=== PATIENT | female | born 1950 | race African-American/Black ===

== ENCOUNTER 2016-12-31 11:52 | Inpatient (IN) | payer MEDICAID ==
[~2016-12-31] VITALS: Ht 167.6 cm; Wt 113.4 kg
[~2016-12-31 11:52] MED LIST: AMLO10TA4 PO; ATOR10TA PO; FLUT1DIS IH; FURO-152 PO; Guaifenesin PO; MECL25TA3 PO; METH10TA2 PO; METH500T PO; MONT10TA21 PO; THE3 PO
[2016-12-31] MEDS ORDERED: ONDANSETRON HCL 4MG/2ML VIAL IV STA (12:12)
[2016-12-31] MEDS ORDERED: IPRATROPIUM BROMIDE (0.02%) 0.5MG/2.5ML NEB HHN STA (12:12)
[2016-12-31] MEDS ORDERED: METHYLPREDNISOLONE SOD SUCC 125 MG/2 ML VIAL IV STA (12:12)
[2016-12-31] MEDS ORDERED: MORPHINE SULFATE 4 MG/ML CPJ (NOT FOR IM USE) IV STA (12:12)
[2016-12-31] MEDS ORDERED: ALBUTEROL (0.083%) 2.5MG/3ML NEB HHN STA (12:12)
[2016-12-31 13:16] LABS: BASOPHILS % 0.5 % (0.0-2.0); EOSINOPHILS % 3.4 % (0.0-5.0); HEMATOCRIT. 29.5 % (36.0-48.0); HEMOGLOBIN. 8.9 g/dL (12.0-16.0); LYMPHOCYTES % 17.6 % (20.0-50.0); MEAN CORPUSCULAR HEMOGLOBIN 24.5 pg (28.0-32.0); MEAN CORPUSCULAR VOLUME 81.5 fL (81.0-99.0); MEAN PLATELET VOLUME 8.2 fl (7.4-10.4); MONOCYTES % 6.1 % (2.0-8.0); NEUTROPHILS % 72.4 % (40.0-76.0); PLATELET 396 x1000/uL (130-400); RED BLOOD CELL COUNT 3.63 mill/uL (4.2-5.4)
[2016-12-31 13:39] LABS: CARBON DIOXIDE 35 mEq/L (21-32); CHLORIDE 101 mEq/L (98-107); TROPONIN I < 0.02 ng/mL (0.00-0.04)
[2016-12-31 13:44] LABS: PROTHROMBIN TIME 10.4 sec (9.4-11.6)
[2016-12-31 17:54] LABS: CLARITY URINE CLEAR (CLEAR); COLOR URINE YELLOW (YELLOW); GLUCOSE URINE NEGATIVE (NEGATIVE); KETONES URINE NEGATIVE (NEGATIVE); LEUKOCYTE ESTERASE URINE 2+ (NEGATIVE); NITRITE URINE NEGATIVE (NEGATIVE); OCCULT BLOOD URINE NEGATIVE (NEGATIVE); PROTEIN URINE NEGATIVE (NEGATIVE); SPECIFIC GRAVITY URINE 1.018 (1.005-1.030); UROBILINOGEN URINE 0.2 E.U./dL (0.2-1.0)
[2016-12-31 18:08] LABS: *AMPHETAMINES SCREEN URINE NEGATIVE (NEGATIVE); *BARBITURATES SCREEN URINE NEGATIVE (NEGATIVE); *BENZODIAZEPINES SCREEN URINE PRESUMTIVE POSITIVE (NEGATIVE); *COCAINE SCREEN URINE NEGATIVE (NEGATIVE); CANNABINOID URINE SCREEN NEGATIVE (NEGATIVE); OPIATES URINE SCREEN PRESUMTIVE POSITIVE (NEGATIVE); PHENCYCLIDINE URINE SCREEN NEGATIVE (NEGATIVE)
[2016-12-31 18:15] LABS: METHADONE URINE SCREEN PRESUMTIVE POSITIVE (NEGATIVE)
[2016-12-31] MEDS ORDERED: MAGNESIUM/ALUMINUM HYDROXIDE/SIMETHICONE 30ML UDC PO PRN (19:45)
[2016-12-31] MEDS ORDERED: ACETAMINOPHEN 325MG TABLET PO PRN (19:45)
[2016-12-31] MEDS ORDERED: ACETAMINOPHEN 650MG/20.3ML UDC GT PRN (19:45)
[2016-12-31] MEDS ORDERED: ACETAMINOPHEN 650MG SUPP PR PRN (19:45)
[2016-12-31] MEDS ORDERED: IPRATROPIUM/ALBUTEROL 0.5-3(2.5)MG/3ML NEB INH PRN (19:45)
[2016-12-31] MEDS ORDERED: DIPHENHYDRAMINE 50MG/ML VIAL IV PRN (19:45)
[2016-12-31] MEDS ORDERED: CLONIDINE 0.1MG TABLET PO PRN (19:45)
[2016-12-31 21:00] VITALS: BP 146/51
[2016-12-31] MEDS ORDERED: NA PHOS,M-B/NA PHOS,DI-BA ENEMA 118ML PR PRN (21:00)
[2016-12-31] MEDS ORDERED: METHADONE HCL 10MG TABLET PO SCH (21:30)
[2016-12-31] MEDS: ATORVASTATIN CALCIUM 10MG TABLET PO SCH (21:50)
[2016-12-31] MEDS: MONTELUKAST SODIUM 10MG TABLET PO SCH (21:50)
[2016-12-31] MEDS: AMLODIPINE 5MG TABLET PO SCH (21:52)
[2016-12-31] MEDS: CLONIDINE 0.1MG TABLET PO SCH (21:54)
[2016-12-31] MEDS: SODIUM CHLORIDE 0.9% INJ 3ML FLUSH IVF SCH (21:57)
[2016-12-31] MEDS ORDERED: METHYLPREDNISOLONE SOD SUCC 125 MG/2 ML VIAL IV SCH (22:00)
[2016-12-31 23:04] LABS: CREATINE KINASE 90 IU/L (26-192)
[2016-12-31 23:40] VITALS: BP 146/51
[2017-01-01] VITALS: BP 153/77
[2017-01-01] MEDS: METHYLPREDNISOLONE SOD SUCC 125 MG/2 ML VIAL IV SCH ×4 (00:07→17:45)
[2017-01-01] MEDS ORDERED: IBUP-2030 PO (01:13)
[2017-01-01 04:00] VITALS: BP 148/72
[2017-01-01] MEDS: SODIUM CHLORIDE 0.9% INJ 3ML FLUSH IVF SCH ×3 (06:21→21:40)
[2017-01-01 07:34] LABS: HEMATOCRIT. 28.9 % (36.0-48.0); HEMOGLOBIN. 8.9 g/dL (12.0-16.0); MEAN CORPUSCULAR HEMOGLOBIN 24.8 pg (28.0-32.0); MEAN CORPUSCULAR VOLUME 80.2 fL (81.0-99.0); MEAN PLATELET VOLUME 8.3 fl (7.4-10.4); PLATELET 381 x1000/uL (130-400); RED BLOOD CELL COUNT 3.61 mill/uL (4.2-5.4); RED CELL DISTRIBUTION WIDTH 13.9 % (11.6-14.6)
[2017-01-01 08:00] VITALS: BP 150/69
[2017-01-01] MEDS: CLONIDINE 0.1MG TABLET PO SCH ×3 (08:35→21:39)
[2017-01-01] MEDS: AMLODIPINE 5MG TABLET PO SCH ×2 (08:35→21:40)
[2017-01-01 08:50] LABS: CARBON DIOXIDE 32 mEq/L (21-32); CHLORIDE 101 mEq/L (98-107); CREATINE KINASE 78 IU/L (26-192); HDL CHOLESTEROL 66 mg/dL (40-59); LDL CHOLESTEROL 91 mg/dL (5-100); TROPONIN I < 0.02 ng/mL (0.00-0.04)
[2017-01-01] MEDS: METHADONE HCL 10MG TABLET PO SCH (09:23)
[2017-01-01 11:40] LABS: PLATELET ESTIMATE NORMAL
[2017-01-01 12:00] VITALS: BP 137/69
[2017-01-01] MEDS: IPRATROPIUM/ALBUTEROL 0.5-3(2.5)MG/3ML NEB HHN SCH ×3 (12:19→20:36)
[2017-01-01 14:51] LABS: CLARITY URINE CLEAR (CLEAR); COLOR URINE YELLOW (YELLOW); GLUCOSE URINE 2+ (NEGATIVE); KETONES URINE NEGATIVE (NEGATIVE); LEUKOCYTE ESTERASE URINE 1+ (NEGATIVE); NITRITE URINE NEGATIVE (NEGATIVE); OCCULT BLOOD URINE NEGATIVE (NEGATIVE); PH URINE 6.5 (4.5-8.0); PROTEIN URINE NEGATIVE (NEGATIVE)
[2017-01-01 15:06] LABS: *AMPHETAMINES SCREEN URINE NEGATIVE (NEGATIVE); *BARBITURATES SCREEN URINE NEGATIVE (NEGATIVE); *BENZODIAZEPINES SCREEN URINE PRESUMTIVE POSITIVE (NEGATIVE); *COCAINE SCREEN URINE NEGATIVE (NEGATIVE); CANNABINOID URINE SCREEN NEGATIVE (NEGATIVE); OPIATES URINE SCREEN PRESUMTIVE POSITIVE (NEGATIVE); PHENCYCLIDINE URINE SCREEN NEGATIVE (NEGATIVE)
[2017-01-01 15:10] LABS: METHADONE URINE SCREEN PRESUMTIVE POSITIVE (NEGATIVE)
[2017-01-01 16:00] VITALS: BP 136/113
[2017-01-01] MEDS: FUROSEMIDE 40MG/4ML VIAL IVP SCH (16:56)
[2017-01-01] MEDS: MONTELUKAST SODIUM 10MG TABLET PO SCH (16:57)
[2017-01-01 20:00] VITALS: BP 144/63
[2017-01-01] MEDS: ATORVASTATIN CALCIUM 10MG TABLET PO SCH (21:38)
[2017-01-02] VITALS (7 sets, daily range): BP systolic 143–154; BP diastolic 66–78
[2017-01-02] MEDS: METHYLPREDNISOLONE SOD SUCC 125 MG/2 ML VIAL IV SCH ×3 (03:41→12:40)
[2017-01-02] MEDS: IPRATROPIUM/ALBUTEROL 0.5-3(2.5)MG/3ML NEB HHN SCH ×4 (05:17→16:18)
[2017-01-02] MEDS: SODIUM CHLORIDE 0.9% INJ 3ML FLUSH IVF SCH ×2 (06:58→14:28)
[2017-01-02 07:22] LABS: HEMATOCRIT. 29.2 % (36.0-48.0); HEMOGLOBIN. 9.2 g/dL (12.0-16.0); MEAN CORPUSCULAR HEMOGLOBIN 24.7 pg (28.0-32.0); MEAN CORPUSCULAR VOLUME 78.6 fL (81.0-99.0); MEAN PLATELET VOLUME 8.3 fl (7.4-10.4); PLATELET 401 x1000/uL (130-400); RED BLOOD CELL COUNT 3.71 mill/uL (4.2-5.4)
[2017-01-02 07:55] LABS: CARBON DIOXIDE 34 mEq/L (21-32); CHLORIDE 98 mEq/L (98-107)
[2017-01-02] MEDS: FUROSEMIDE 40MG/4ML VIAL IVP SCH (08:53)
[2017-01-02] MEDS: METHADONE HCL 10MG TABLET PO SCH (08:58)
[2017-01-02] MEDS: AMLODIPINE 5MG TABLET PO SCH (08:59)
[2017-01-02 10:39] LABS: BG CARBOXYHEMOGLOBIN 0.3 % (0.5-1.5); BG DEOXYHEMOGLOBIN 2.5 % (0.0-5.0); BG FRACTION INSPIRED OXYGEN 28; BG METHEMOGLOBIN 0.3 % (0.0-1.5); BG OXYGEN SATURATION 97.5 % (92.0-98.5); BG OXYHEMOGLOBIN 96.9 % (94.0-97.0); BG PCO2 48.1 mmHg (35.0-45.0); BG PH 7.454 (7.350-7.450); BG PO2 94.1 mmHg (75.0-100.0); BG SAMPLE SITE RIGHT BRACHIAL; BG TOTAL HEMOGLOBIN 10.9 g/dL (12.0-18.0); BG VENT MODE NASAL CANNULA
[2017-01-02] MEDS: HYDROCODONE/ACETAMINOPHEN 5/325MG TABLET PO PRN ×2 (11:11→17:26)
[2017-01-02] MEDS ORDERED: CLONIDINE 0.1MG TABLET PO PRN (11:15)
[2017-01-02] MEDS ORDERED: CLONIDINE 0.2MG TABLET PO PRN (11:15)
[2017-01-02 17:11] LABS: PLATELET ESTIMATE INCREASED
[2017-01-02] MEDS: MONTELUKAST SODIUM 10MG TABLET PO SCH (17:23)
[2017-01-02] MEDS: CLONIDINE 0.1MG TABLET PO SCH (17:25)
[2017-01-02] MEDS ORDERED: METHYLPREDNISOLONE SOD SUCC 40 MG/ML VIAL IV SCH (21:00)
== END 2017-01-02 20:54 | disposition short-term general hospital (02) | DRG 133 ==
LOC: ER 12:13 → 6WST 14:30 → EDBEDREQ 14:33 → ENRESERV 17:44
PROVIDERS: ADMIT Family Medicine; ATTEND Family Medicine
DX: J96.00 Acute respiratory failure, unspecified whether with hypoxia or hypercapnia (principal); I50.31 Acute diastolic (congestive) heart failure; J44.1 Chronic obstructive pulmonary disease with (acute) exacerbation; Z68.41 Body mass index [BMI] 40.0-44.9, adult; I11.0 Hypertensive heart disease with heart failure; D63.8 Anemia in other chronic diseases classified elsewhere; F11.90 Opioid use, unspecified, uncomplicated; E78.5 Hyperlipidemia, unspecified; F17.210 Nicotine dependence, cigarettes, uncomplicated; I49.3 Ventricular premature depolarization; J32.3 Chronic sphenoidal sinusitis; E87.5 Hyperkalemia; E66.01 Morbid (severe) obesity due to excess calories; Z79.899 Other long term (current) drug therapy
CPT/HCPCS: 36415; 36600; 70450; 71010; 80048; 80053; 80061; 80305; 81001; 82375; 82550; 82805; 83605; 83880; 84484; 85025; 85610; 87040; 93005; 93970; 94640; 94664; 96374; 96375; 97162; 99285; J1200; J1940; J2270; J2405; J2930; J7611; J7620

== ENCOUNTER 2017-01-25 12:58 | Inpatient (IN) | payer MEDICAID ==
[~2017-01-25] VITALS: Ht 154.9 cm; Wt 113.6 kg
[~2017-01-25 12:58] MED LIST changes: -Guaifenesin PO; +IBUP-2030 PO
[2017-01-25 14:32] LABS: CLARITY URINE CLEAR (CLEAR); COLOR URINE YELLOW (YELLOW); GLUCOSE URINE NEGATIVE (NEGATIVE); KETONES URINE NEGATIVE (NEGATIVE); LEUKOCYTE ESTERASE URINE NEGATIVE (NEGATIVE); NITRITE URINE NEGATIVE (NEGATIVE); OCCULT BLOOD URINE NEGATIVE (NEGATIVE); PROTEIN URINE NEGATIVE (NEGATIVE); SPECIFIC GRAVITY URINE 1.023 (1.005-1.030); UROBILINOGEN URINE 0.2 E.U./dL (0.2-1.0)
[2017-01-25 14:54] LABS: PROTHROMBIN TIME 10.2 sec (9.4-11.6)
[2017-01-25 14:56] LABS: BASOPHILS % 1.1 % (0.0-2.0); EOSINOPHILS % 4.6 % (0.0-5.0); HEMATOCRIT. 31.7 % (36.0-48.0); HEMOGLOBIN. 9.7 g/dL (12.0-16.0); LYMPHOCYTES % 15.4 % (20.0-50.0); MEAN CORPUSCULAR HEMOGLOBIN 25.5 pg (28.0-32.0); MEAN CORPUSCULAR VOLUME 82.9 fL (81.0-99.0); MEAN PLATELET VOLUME 7.6 fl (7.4-10.4); MONOCYTES % 10.4 % (2.0-8.0); NEUTROPHILS % 68.5 % (40.0-76.0); PLATELET 401 x1000/uL (130-400); RED BLOOD CELL COUNT 3.83 mill/uL (4.2-5.4); RED CELL DISTRIBUTION WIDTH 15.3 % (11.6-14.6)
[2017-01-25 15:02] LABS: CARBON DIOXIDE 34 mEq/L (21-32); CHLORIDE 103 mEq/L (98-107); TROPONIN I < 0.02 ng/mL (0.00-0.04)
[2017-01-25 15:37] LABS: BG BASE EXCESS 3.7 mmol/L (-2.0-2.0); BG CARBOXYHEMOGLOBIN 0.6 % (0.5-1.5); BG DEOXYHEMOGLOBIN 2.8 % (0.0-5.0); BG FRACTION INSPIRED OXYGEN 38; BG HCO3 ACT 34.5 mmol/L (22.0-26.0); BG METHEMOGLOBIN 0.5 % (0.0-1.5); BG OXYGEN SATURATION 97.2 % (92.0-98.5); BG OXYHEMOGLOBIN 96.1 % (94.0-97.0); BG PCO2 96.6 mmHg (35.0-45.0); BG PH 7.171 (7.350-7.450); BG SAMPLE SITE RIGHT RADIAL; BG TOTAL HEMOGLOBIN 10.9 g/dL (12.0-18.0); BG VENT MODE NASAL CANNULA
[2017-01-25] MEDS ORDERED: NALOXONE HCL 1 MG/ML 2ML VIAL IV ONE (16:15)
[2017-01-25] MEDS ORDERED: IPRATROPIUM BROMIDE (0.02%) 0.5MG/2.5ML NEB HHN STA (16:37)
[2017-01-25] MEDS ORDERED: METHYLPREDNISOLONE SOD SUCC 125 MG/2 ML VIAL IV ONE (16:45)
[2017-01-25] MEDS ORDERED: ALBUTEROL (0.083%) 2.5MG/3ML NEB ONE (16:56)
[2017-01-25] MEDS ORDERED: IPRATROPIUM BROMIDE (0.02%) 0.5MG/2.5ML NEB ONE (16:56)
[2017-01-25] MEDS ORDERED: ALBUTEROL (0.083%) 2.5MG/3ML NEB HHN SCH (17:00)
[2017-01-25] MEDS: SODIUM CHLORIDE 0.9% 1,000 ML IV SCH (18:55)
[2017-01-25] MEDS ORDERED: CLONIDINE 0.1MG TABLET PO PRN (19:00)
[2017-01-25] MEDS ORDERED: ONDANSETRON HCL 4MG/2ML VIAL IV PRN (19:00)
[2017-01-25] MEDS ORDERED: ACETAMINOPHEN 325MG TABLET PO PRN (19:00)
[2017-01-25] MEDS ORDERED: MAGNESIUM/ALUMINUM HYDROXIDE/SIMETHICONE 30ML UDC PO PRN (19:00)
[2017-01-25] MEDS ORDERED: IPRATROPIUM/ALBUTEROL 0.5-3(2.5)MG/3ML NEB INH PRN (19:00)
[2017-01-25 20:00] VITALS: BP 150/80
[2017-01-25 20:05] LABS: *AMPHETAMINES SCREEN URINE NEGATIVE (NEGATIVE); *BARBITURATES SCREEN URINE NEGATIVE (NEGATIVE); *BENZODIAZEPINES SCREEN URINE PRESUMTIVE POSITIVE (NEGATIVE); *COCAINE SCREEN URINE NEGATIVE (NEGATIVE); CANNABINOID URINE SCREEN NEGATIVE (NEGATIVE); METHADONE URINE SCREEN PRESUMTIVE POSITIVE (NEGATIVE); OPIATES URINE SCREEN PRESUMTIVE POSITIVE (NEGATIVE); PHENCYCLIDINE URINE SCREEN NEGATIVE (NEGATIVE)
[2017-01-25 20:25] LABS: CARBON DIOXIDE 32 mEq/L (21-32); CHLORIDE 103 mEq/L (98-107)
[2017-01-25 20:30] LABS: CREATINE KINASE 266 IU/L (26-192); CREATINE KINASE MB FRACTION 2.8 ng/mL (0.5-3.6); TROPONIN I < 0.02 ng/mL (0.00-0.04)
[2017-01-25] MEDS ORDERED: AZITHROMYCIN 500 MG in DEXT 5% WATER 250 ML IV SCH (21:00)
[2017-01-25] MEDS: METHYLPREDNISOLONE SOD SUCC 40 MG/ML VIAL IV SCH (21:19)
[2017-01-25 22:00] VITALS: BP 102/70
[2017-01-25] MEDS ORDERED: CEFTRIAXONE 1 G PREMIX 50 ML IV SCH (22:00)
[2017-01-25 23:21] VITALS: BP 150/80
[2017-01-26] VITALS (8 sets, daily range): BP systolic 117–145; BP diastolic 66–91
[2017-01-26] MEDS: METHYLPREDNISOLONE SOD SUCC 40 MG/ML VIAL IV SCH ×3 (00:17→08:51)
[2017-01-26] MEDS: BUDESONIDE 0.5MG/2ML NEB HHN SCH ×2 (00:22→08:01)
[2017-01-26 06:44] LABS: BASOPHILS % 0.2 % (0.0-2.0); HEMATOCRIT. 31.6 % (36.0-48.0); HEMOGLOBIN. 9.8 g/dL (12.0-16.0); LYMPHOCYTES % 9.5 % (20.0-50.0); MEAN CORPUSCULAR HEMOGLOBIN 25.5 pg (28.0-32.0); MEAN CORPUSCULAR VOLUME 82.2 fL (81.0-99.0); MEAN PLATELET VOLUME 7.9 fl (7.4-10.4); MONOCYTES % 0.8 % (2.0-8.0); NEUTROPHILS % 89.5 % (40.0-76.0); PLATELET 415 x1000/uL (130-400); RED BLOOD CELL COUNT 3.84 mill/uL (4.2-5.4); RED CELL DISTRIBUTION WIDTH 14.8 % (11.6-14.6)
[2017-01-26 07:15] LABS: BG BASE EXCESS 1.1 mmol/L (-2.0-2.0); BG CARBOXYHEMOGLOBIN 0.8 % (0.5-1.5); BG DEOXYHEMOGLOBIN 9.9 % (0.0-5.0); BG HCO3 ACT 27.7 mmol/L (22.0-26.0); BG METHEMOGLOBIN 0.3 % (0.0-1.5); BG PCO2 53.3 mmHg (35.0-45.0); BG PH 7.333 (7.350-7.450); BG PO2 56.1 mmHg (75.0-100.0); BG SAMPLE SITE RIGHT RADIAL; BG TOTAL HEMOGLOBIN 10.8 g/dL (12.0-18.0); BG VENT MODE NASAL CANNULA
[2017-01-26] MEDS: THEOPHYLLINE ANHYDROUS 80 MG/15 ML 120ML PO SCH ×3 (08:00→12:00)
[2017-01-26] MEDS: ALBUTEROL (0.083%) 2.5MG/3ML NEB HHN SCH ×2 (08:01→14:20)
[2017-01-26 08:04] LABS: CREATINE KINASE 172 IU/L (26-192); HDL CHOLESTEROL 57 mg/dL (40-59); LDL CHOLESTEROL 101 mg/dL (5-100)
[2017-01-26 08:05] LABS: CREATINE KINASE MB FRACTION 2.1 ng/mL (0.5-3.6); TROPONIN I < 0.02 ng/mL (0.00-0.04)
[2017-01-26] MEDS: METHOCARBAMOL 500MG TABLET PO SCH ×2 (08:56→12:48)
[2017-01-26] MEDS ORDERED: METHOCARBAMOL 500MG TABLET PO SCH (09:00)
[2017-01-26] MEDS ORDERED: THEOPHYLLINE ANHYDROUS 100MG TABLET SR 12HR PO SCH (09:00)
[2017-01-26] MEDS ORDERED: THEOPHYLLINE ANHYDROUS 300 MG PO SCH (09:00)
[2017-01-26] MEDS ORDERED: MECLIZINE 25MG TABLET PO SCH (09:00)
[2017-01-26] MEDS ORDERED: FUROSEMIDE 20MG TABLET PO SCH (09:00)
[2017-01-26] MEDS ORDERED: AMLODIPINE 10MG TABLET PO SCH (09:00)
[2017-01-26] MEDS ORDERED: MEDICATION NOT ON FORMULARY EA (Fluticasone/Salmeterol (Advair Diskus) 1 PUFF) IH SCH (09:00)
[2017-01-26] MEDS ORDERED: ENOXAPARIN 40MG/0.4ML SYR SUBCUT SCH (09:00)
[2017-01-26] MEDS: SODIUM CHLORIDE 0.9% 1,000 ML IV SCH (11:35)
[2017-01-26] MEDS ORDERED: AZITHROMYCIN 500 MG in DEXT 5% WATER 250 ML IV SCH (20:00)
[2017-01-26] MEDS ORDERED: CEFTRIAXONE 1 G PREMIX 50 ML IV SCH (21:00)
[2017-01-26] MEDS ORDERED: MONTELUKAST SODIUM 10MG TABLET PO SCH (21:00)
[2017-01-26] MEDS ORDERED: ATORVASTATIN CALCIUM 10MG TABLET PO SCH (21:00)
[2017-01-27] MEDS ORDERED: METHYLPREDNISOLONE SOD SUCC 40 MG/ML VIAL IV SCH (09:00)
== END 2017-01-26 17:33 | disposition home or self-care (01) | DRG 140 ==
LOC: ER 12:58 → 5EST 16:30 → ENRESERV 16:42 → 5EST 22:00
PROVIDERS: ADMIT Internal Medicine; ATTEND Internal Medicine
PROC: 5A09357 Assistance with Respiratory Ventilation, Less than 24 Consecutive Hours, Continuous Positive Airway Pressure (ICD-10-PCS; principal; 2017-01-25)
DX: J44.0 Chronic obstructive pulmonary disease with (acute) lower respiratory infection (principal); J96.01 Acute respiratory failure with hypoxia; G92 Toxic encephalopathy; J18.9 Pneumonia, unspecified organism; J96.02 Acute respiratory failure with hypercapnia; I11.0 Hypertensive heart disease with heart failure; I50.32 Chronic diastolic (congestive) heart failure; Z99.81 Dependence on supplemental oxygen; E66.01 Morbid (severe) obesity due to excess calories; D64.9 Anemia, unspecified; E78.5 Hyperlipidemia, unspecified; F11.90 Opioid use, unspecified, uncomplicated; R73.9 Hyperglycemia, unspecified; J44.1 Chronic obstructive pulmonary disease with (acute) exacerbation; Z79.899 Other long term (current) drug therapy
CPT/HCPCS: 36415; 36600; 70551; 71010; 80048; 80061; 80305; 81003; 82375; 82550; 82553; 82805; 82962; 83690; 83735; 83880; 84484; 85025; 85610; 87040; 87086; 93005; 93970; 94640; 94660; 96374; 96375; 99291; J0456; J0696; J1650; J2310; J2920; J2930; J7030; J7060; J7611; J7620; J7626; J8597

== ENCOUNTER 2017-11-08 08:14 | Emergency (ER) | payer MEDICARE, MEDICAID ==
[~2017-11-08] VITALS: Ht 157.5 cm; Wt 95.0 kg
[2017-11-08] MEDS ORDERED: IPRATROPIUM BROMIDE (0.02%) 0.5MG/2.5ML NEB HHN STA (08:40)
[2017-11-08] MEDS ORDERED: ALBUTEROL (0.083%) 2.5MG/3ML NEB HHN STA (08:40)
[2017-11-08] MEDS ORDERED: METHYLPREDNISOLONE SOD SUCC 125 MG/2 ML VIAL IV STA (08:40)
[2017-11-08] MEDS ORDERED: IPRATROPIUM/ALBUTEROL 0.5-3(2.5)MG/3ML NEB ONE (08:59)
[2017-11-08] MEDS ORDERED: ALBUTEROL (0.5%) 2.5MG/0.5ML NEB HHN ONE (08:59)
[2017-11-08 09:10] LABS: BASOPHILS % 1.1 % (0.0-2.0); EOSINOPHILS % 3.7 % (0.0-5.0); HEMATOCRIT. 31.2 % (36.0-48.0); HEMOGLOBIN. 10.1 g/dL (12.0-16.0); LYMPHOCYTES % 29.4 % (20.0-50.0); MEAN CORPUSCULAR HEMOGLOBIN 26.2 pg (28.0-32.0); MEAN PLATELET VOLUME 7.9 fl (7.4-10.4); MONOCYTES % 5.7 % (2.0-8.0); NEUTROPHILS % 60.1 % (40.0-76.0); PLATELET 363 x1000/uL (130-400); RED BLOOD CELL COUNT 3.85 mill/uL (4.2-5.4); RED CELL DISTRIBUTION WIDTH 13.4 % (11.6-14.6)
[2017-11-08 09:17] LABS: CHLORIDE 102 mEq/L (98-107)
[2017-11-08 09:19] LABS: PROTHROMBIN TIME 10.2 sec (9.1-11.1)
[2017-11-08] MEDS ORDERED: ACETAMINOPHEN WITH CODEINE 300/30MG TABLET PO ONE (09:45)
[2017-11-08 10:37] VITALS: BP 147/75
[2017-11-08] MEDS ORDERED: LIDOCAINE 5% PATCH TOP SCH (10:45)
== END 2017-11-08 11:11 | disposition home or self-care (01) ==
LOC: ER 08:14
DX: J44.1 Chronic obstructive pulmonary disease with (acute) exacerbation (principal); I50.9 Heart failure, unspecified; Z99.81 Dependence on supplemental oxygen
CPT/HCPCS: 36415; 71045; 80053; 83880; 84484; 85025; 85610; 93005; 94640; 96374; 99285; J2930; J7611; J7620

== ENCOUNTER 2018-05-16 23:10 | Inpatient (IN) | payer MEDICARE, MEDICAID ==
[~2018-05-16] VITALS: Ht 160 cm; Wt 103.2 kg
[2018-05-17] MEDS ORDERED: MORPHINE SULFATE 4 MG/ML CPJ (NOT FOR IM USE) IV STA (00:01)
[2018-05-17] MEDS ORDERED: ONDANSETRON HCL 4MG/2ML INJ IV STA (00:01)
[2018-05-17] MEDS ORDERED: METHYLPREDNISOLONE SOD SUCC 125 MG/2 ML VIAL IV STA (00:01)
[2018-05-17] MEDS ORDERED: IPRATROPIUM/ALBUTEROL 0.5-3(2.5)MG/3ML NEB HHN ONE (00:15)
[2018-05-17] MEDS ORDERED: ASPIRIN 81MG TABLET PO ONE (00:15)
[2018-05-17] MEDS ORDERED: LEVOFLOXACIN 750MG PREMIX 150 ML IV ONE (00:15)
[2018-05-17 00:36] LABS: BASOPHILS % 0.4 % (0.0-2.0); EOSINOPHILS % 0.3 % (0.0-5.0); HEMATOCRIT. 33.3 % (36.0-48.0); HEMOGLOBIN. 10.3 g/dL (12.0-16.0); LYMPHOCYTES % 11.9 % (20.0-50.0); MEAN CORPUSCULAR HEMOGLOBIN 25.6 pg (28.0-32.0); MEAN PLATELET VOLUME 8.3 fl (7.4-10.4); MONOCYTES % 4.8 % (2.0-8.0); NEUTROPHILS % 82.6 % (40.0-76.0); PLATELET 321 x1000/uL (130-400); RED BLOOD CELL COUNT 4.02 mill/uL (4.2-5.4); RED CELL DISTRIBUTION WIDTH 13.4 % (11.6-14.6)
[2018-05-17 00:43] LABS: CHLORIDE 101 mEq/L (98-107)
[2018-05-17 00:46] LABS: PARTIAL THROMBOPLASTIN TIME 27.3 sec (23.4-31.0); PROTHROMBIN TIME 10.2 sec (9.1-11.1)
[2018-05-17 00:47] LABS: ETHANOL BLOOD < 10 mg/dL
[2018-05-17 00:49] LABS: BG BASE EXCESS 5.1 mmol/L (-2.0-2.0); BG CARBOXYHEMOGLOBIN 0.3 % (0.5-1.5); BG DEOXYHEMOGLOBIN 2.5 % (0.0-5.0); BG FRACTION INSPIRED OXYGEN 28; BG HCO3 ACT 31.6 mmol/L (22.0-26.0); BG METHEMOGLOBIN 0.3 % (0.0-1.5); BG OXYGEN SATURATION 97.5 % (92.0-98.5); BG OXYHEMOGLOBIN 96.9 % (94.0-97.0); BG PCO2 56.5 mmHg (35.0-45.0); BG PH 7.366 (7.350-7.450); BG PO2 92.5 mmHg (75.0-100.0); BG SAMPLE SITE LEFT RADIAL; BG TOTAL HEMOGLOBIN 10.9 g/dL (12.0-18.0); BG VENT MODE NASAL CANNULA
[2018-05-17] MEDS ORDERED: MAGNESIUM/ALUMINUM HYDROXIDE/SIMETHICONE 30ML UDC PO PRN (10:15)
[2018-05-17] MEDS ORDERED: DOCUSATE SODIUM 100MG CAPSULE PO PRN (10:15)
[2018-05-17] MEDS ORDERED: ONDANSETRON HCL 4MG/2ML INJ IV PRN (10:15)
[2018-05-17] MEDS ORDERED: GUAIFENESIN 200MG/10ML SUGAR FREE UDC PO PRN (10:15)
[2018-05-17] MEDS ORDERED: DIPHENHYDRAMINE 50MG/ML VIAL IV PRN (10:15)
[2018-05-17] MEDS ORDERED: ACETAMINOPHEN 325MG TABLET PO PRN (10:15)
[2018-05-17] MEDS ORDERED: CLONIDINE 0.1MG TABLET PO PRN (10:15)
[2018-05-17] MEDS ORDERED: HYDROCODONE/ACETAMINOPHEN 5/325MG TABLET PO PRN (10:15)
[2018-05-17] MEDS ORDERED: IPRATROPIUM/ALBUTEROL 0.5-3(2.5)MG/3ML NEB HHN PRN (11:30)
[2018-05-17 12:12] LABS: T4 FREE 1.16 ng/dL (0.76-1.46)
[2018-05-17] MEDS: IPRATROPIUM/ALBUTEROL 0.5-3(2.5)MG/3ML NEB INH PRN (14:50)
[2018-05-17] MEDS: HYDROCODONE/APAP 7.5/325MG 1 TAB TABLET PO PRN (19:43)
[2018-05-17 21:33] VITALS: BP 162/72
[2018-05-17] MEDS: FUROSEMIDE 20MG TABLET PO SCH (22:44)
[2018-05-17] MEDS: AMLODIPINE 5MG TABLET PO SCH (22:45)
[2018-05-17] MEDS: TRAMADOL 50MG TABLET PO PRN (23:54)
[2018-05-18] VITALS: BP 139/75
[2018-05-18] MEDS: IPRATROPIUM/ALBUTEROL 0.5-3(2.5)MG/3ML NEB INH PRN ×4 (00:16→20:57)
[2018-05-18] MEDS: BUDESONIDE 0.5MG/2ML NEB HHN SCH ×3 (00:16→20:58)
[2018-05-18 04:00] VITALS: BP 158/63
[2018-05-18] MEDS: FUROSEMIDE 20MG TABLET PO SCH ×2 (06:18→17:43)
[2018-05-18 07:10] LABS: BASOPHILS % 0.5 % (0.0-2.0); EOSINOPHILS % 0.4 % (0.0-5.0); HEMATOCRIT. 31.9 % (36.0-48.0); HEMOGLOBIN. 10.1 g/dL (12.0-16.0); LYMPHOCYTES % 22.1 % (20.0-50.0); MEAN CORPUSCULAR HEMOGLOBIN 25.8 pg (28.0-32.0); MEAN CORPUSCULAR VOLUME 81.9 fL (81.0-99.0); MEAN PLATELET VOLUME 8.5 fl (7.4-10.4); MONOCYTES % 6.9 % (2.0-8.0); NEUTROPHILS % 70.1 % (40.0-76.0); PLATELET 313 x1000/uL (130-400); RED BLOOD CELL COUNT 3.89 mill/uL (4.2-5.4); RED CELL DISTRIBUTION WIDTH 13.3 % (11.6-14.6)
[2018-05-18 07:24] LABS: CHLORIDE 102 mEq/L (98-107)
[2018-05-18 07:36] LABS: LDL CHOLESTEROL 88 mg/dL (5-100)
[2018-05-18 07:37] LABS: HDL CHOLESTEROL 49 mg/dL (40-59)
[2018-05-18 08:20] VITALS: BP 97/65
[2018-05-18] MEDS: AMLODIPINE 5MG TABLET PO SCH ×2 (08:45→20:49)
[2018-05-18] MEDS: ENOXAPARIN 40MG/0.4ML SYR SUBCUT SCH (09:00)
[2018-05-18] MEDS: TRAMADOL 50MG TABLET PO PRN ×2 (09:33→15:42)
[2018-05-18 12:00] VITALS: BP 125/54
[2018-05-18 13:42] LABS: T4 FREE 1.17 ng/dL (0.76-1.46)
[2018-05-18 13:55] LABS: FOLIC ACID (FOLATE) SERUM 15.8 ng/mL (>5.38)
[2018-05-18 14:14] LABS: CLARITY URINE CLEAR (CLEAR); COLOR URINE YELLOW (YELLOW); KETONES URINE NEGATIVE (NEGATIVE); LEUKOCYTE ESTERASE URINE TRACE (NEGATIVE); NITRITE URINE NEGATIVE (NEGATIVE); OCCULT BLOOD URINE NEGATIVE (NEGATIVE); PH URINE 6.5 (4.5-8.0); PROTEIN URINE NEGATIVE (NEGATIVE); SPECIFIC GRAVITY URINE 1.007 (1.005-1.030); UROBILINOGEN URINE 0.2 E.U./dL (0.2-1.0)
[2018-05-18 14:43] LABS: *AMPHETAMINES SCREEN URINE NEGATIVE (NEGATIVE)
[2018-05-18 14:44] LABS: *BARBITURATES SCREEN URINE NEGATIVE (NEGATIVE); *BENZODIAZEPINES SCREEN URINE PRESUMTIVE POSITIVE (NEGATIVE); *COCAINE SCREEN URINE NEGATIVE (NEGATIVE); CANNABINOID URINE SCREEN NEGATIVE (NEGATIVE); OPIATES URINE SCREEN PRESUMTIVE POSITIVE (NEGATIVE); PHENCYCLIDINE URINE SCREEN NEGATIVE (NEGATIVE)
[2018-05-18 14:53] LABS: METHADONE URINE SCREEN PRESUMTIVE POSITIVE (NEGATIVE)
[2018-05-18 16:00] VITALS: BP 143/71
[2018-05-18 20:00] VITALS: BP 129/75
[2018-05-18] MEDS: HYDROCODONE/APAP 7.5/325MG 1 TAB TABLET PO PRN (20:50)
[2018-05-19] VITALS: BP 156/76
[2018-05-19] MEDS: TRAMADOL 50MG TABLET PO PRN (00:08)
[2018-05-19 04:00] VITALS: BP 148/55
[2018-05-19] MEDS: FUROSEMIDE 20MG TABLET PO SCH ×2 (06:08→16:42)
[2018-05-19] MEDS: HYDROCODONE/APAP 7.5/325MG 1 TAB TABLET PO PRN ×4 (06:08→21:10)
[2018-05-19 07:08] LABS: BASOPHILS % 0.6 % (0.0-2.0); EOSINOPHILS % 1.1 % (0.0-5.0); HEMATOCRIT. 31.7 % (36.0-48.0); HEMOGLOBIN. 9.9 g/dL (12.0-16.0); LYMPHOCYTES % 36.9 % (20.0-50.0); MEAN CORPUSCULAR HEMOGLOBIN 25.4 pg (28.0-32.0); MEAN CORPUSCULAR VOLUME 81.3 fL (81.0-99.0); MEAN PLATELET VOLUME 8.8 fl (7.4-10.4); MONOCYTES % 8.4 % (2.0-8.0); PLATELET 322 x1000/uL (130-400); RED CELL DISTRIBUTION WIDTH 13.1 % (11.6-14.6)
[2018-05-19 07:34] LABS: CHLORIDE 99 mEq/L (98-107)
[2018-05-19 07:52] LABS: CREATINE KINASE 81 IU/L (26-192)
[2018-05-19] MEDS: BUDESONIDE 0.5MG/2ML NEB HHN SCH ×2 (08:07→22:24)
[2018-05-19 08:11] VITALS: BP 152/69
[2018-05-19] MEDS: IPRATROPIUM/ALBUTEROL 0.5-3(2.5)MG/3ML NEB INH PRN ×2 (08:11→22:24)
[2018-05-19] MEDS: AMLODIPINE 5MG TABLET PO SCH ×2 (08:50→21:09)
[2018-05-19] MEDS: ENOXAPARIN 40MG/0.4ML SYR SUBCUT SCH (08:51)
[2018-05-19 12:00] VITALS: BP 145/61
[2018-05-19] MEDS: LOSARTAN POTASSIUM 25 MG TABLET PO SCH (12:51)
[2018-05-19 16:00] VITALS: BP 159/69
[2018-05-19 20:00] VITALS: BP 151/78
[2018-05-19] MEDS: LORAZEPAM 0.5MG TABLET PO PRN (22:29)
[2018-05-20] VITALS: BP 153/66
[2018-05-20 04:00] VITALS: BP 145/71
[2018-05-20] MEDS: FUROSEMIDE 20MG TABLET PO SCH ×2 (06:44→16:49)
[2018-05-20 08:00] VITALS: BP 135/65
[2018-05-20] MEDS: BUDESONIDE 0.5MG/2ML NEB HHN SCH ×2 (08:59→20:12)
[2018-05-20] MEDS: IPRATROPIUM/ALBUTEROL 0.5-3(2.5)MG/3ML NEB INH PRN ×2 (08:59→20:12)
[2018-05-20] MEDS: LOSARTAN POTASSIUM 25 MG TABLET PO SCH (09:08)
[2018-05-20] MEDS: AMLODIPINE 5MG TABLET PO SCH ×2 (09:08→20:53)
[2018-05-20] MEDS: ENOXAPARIN 40MG/0.4ML SYR SUBCUT SCH (09:11)
[2018-05-20] MEDS: TRAMADOL 50MG TABLET PO PRN (09:11)
[2018-05-20 12:00] VITALS: BP 115/58
[2018-05-20] MEDS: HYDROCODONE/APAP 7.5/325MG 1 TAB TABLET PO PRN ×3 (12:26→21:34)
[2018-05-20 16:00] VITALS: BP 127/63
[2018-05-20 20:00] VITALS: BP 112/82
[2018-05-20] MEDS: ENOXAPARIN 30MG/0.3ML SYR SUBCUT SCH (20:54)
[2018-05-20] MEDS: LORAZEPAM 0.5MG TABLET PO PRN (20:54)
[2018-05-21] VITALS: BP 144/69
[2018-05-21 04:00] VITALS: BP 135/78
[2018-05-21] MEDS: HYDROCODONE/APAP 7.5/325MG 1 TAB TABLET PO PRN (05:26)
[2018-05-21 06:56] LABS: BASOPHILS % 0.5 % (0.0-2.0); EOSINOPHILS % 2.6 % (0.0-5.0); HEMATOCRIT. 35.5 % (36.0-48.0); HEMOGLOBIN. 11.2 g/dL (12.0-16.0); LYMPHOCYTES % 31.6 % (20.0-50.0); MEAN CORPUSCULAR HEMOGLOBIN 25.3 pg (28.0-32.0); MEAN CORPUSCULAR VOLUME 80.6 fL (81.0-99.0); MEAN PLATELET VOLUME 8.5 fl (7.4-10.4); MONOCYTES % 8.7 % (2.0-8.0); NEUTROPHILS % 56.6 % (40.0-76.0); PLATELET 352 x1000/uL (130-400); RED CELL DISTRIBUTION WIDTH 13.5 % (11.6-14.6)
[2018-05-21] MEDS: IPRATROPIUM/ALBUTEROL 0.5-3(2.5)MG/3ML NEB INH PRN ×2 (07:51→22:01)
[2018-05-21] MEDS: BUDESONIDE 0.5MG/2ML NEB HHN SCH ×2 (07:51→22:01)
[2018-05-21 07:52] LABS: CHLORIDE 100 mEq/L (98-107)
[2018-05-21 08:00] VITALS: BP 147/82
[2018-05-21] MEDS: FUROSEMIDE 20MG TABLET PO SCH ×2 (08:48→18:06)
[2018-05-21] MEDS: LOSARTAN POTASSIUM 25 MG TABLET PO SCH (08:49)
[2018-05-21] MEDS: AMLODIPINE 5MG TABLET PO SCH ×2 (08:49→22:02)
[2018-05-21] MEDS: MORPHINE SULFATE 4 MG/ML CPJ (NOT FOR IM USE) IV PRN ×4 (08:50→22:55)
[2018-05-21] MEDS: ENOXAPARIN 30MG/0.3ML SYR SUBCUT SCH ×2 (08:51→22:03)
[2018-05-21 12:24] VITALS: BP 151/76
[2018-05-21] MEDS: LIDOCAINE 5% PATCH TOP SCH (15:11)
[2018-05-21 16:00] VITALS: BP 138/90
[2018-05-21] MEDS: DOCUSATE SODIUM 100MG CAPSULE PO SCH (18:06)
[2018-05-21 20:41] VITALS: BP 146/86
[2018-05-22] VITALS: BP 116/80
[2018-05-22] MEDS: MORPHINE SULFATE 4 MG/ML CPJ (NOT FOR IM USE) IV PRN ×2 (03:23→08:21)
[2018-05-22 04:22] VITALS: BP 113/91
[2018-05-22] MEDS: LORAZEPAM 0.5MG TABLET PO PRN (04:32)
[2018-05-22] MEDS: FUROSEMIDE 20MG TABLET PO SCH (07:09)
[2018-05-22 08:19] VITALS: BP 135/78
[2018-05-22] MEDS: LOSARTAN POTASSIUM 25 MG TABLET PO SCH (08:20)
[2018-05-22] MEDS: DOCUSATE SODIUM 100MG CAPSULE PO SCH (08:20)
[2018-05-22] MEDS: AMLODIPINE 5MG TABLET PO SCH (08:20)
[2018-05-22] MEDS: ENOXAPARIN 30MG/0.3ML SYR SUBCUT SCH (08:21)
[2018-05-22] MEDS: BUDESONIDE 0.5MG/2ML NEB HHN SCH (08:34)
[2018-05-22] MEDS: LIDOCAINE 5% PATCH TOP SCH (09:41)
[2018-05-22 12:00] VITALS: BP 141/74
[2018-05-22] MEDS ORDERED: METHADONE HCL 5MG TABLET PO SCH (12:00)
[2018-05-22 15:33] VITALS: BP 141/74
[2018-05-22 16:43] VITALS: BP 144/51
== END 2018-05-22 16:10 | disposition home health service (06) | DRG 189 ==
LOC: ER 23:10 → 5WST 05-17 01:40 → EDBEDREQ 05-17 01:54 → EDBEDREQTM 05-17 01:54 → ENRESERV 05-17 20:00
PROVIDERS: ADMIT Family Medicine Adult Medicine; ATTEND Family Medicine Adult Medicine
DX: J96.00 Acute respiratory failure, unspecified whether with hypoxia or hypercapnia (principal); I50.33 Acute on chronic diastolic (congestive) heart failure; G82.20 Paraplegia, unspecified; F11.20 Opioid dependence, uncomplicated; J44.1 Chronic obstructive pulmonary disease with (acute) exacerbation; Z68.41 Body mass index [BMI] 40.0-44.9, adult; I27.20 Pulmonary hypertension, unspecified; E66.01 Morbid (severe) obesity due to excess calories; D50.9 Iron deficiency anemia, unspecified; E11.9 Type 2 diabetes mellitus without complications; G89.4 Chronic pain syndrome; I11.0 Hypertensive heart disease with heart failure; E78.5 Hyperlipidemia, unspecified; D72.829 Elevated white blood cell count, unspecified; Z96.651 Presence of right artificial knee joint; I34.0 Nonrheumatic mitral (valve) insufficiency; M17.0 Bilateral primary osteoarthritis of knee; M43.16 Spondylolisthesis, lumbar region; M48.061 Spinal stenosis, lumbar region without neurogenic claudication; Z99.81 Dependence on supplemental oxygen; Z87.891 Personal history of nicotine dependence; Z82.49 Family history of ischemic heart disease and other diseases of the circulatory system; Z79.899 Other long term (current) drug therapy
CPT/HCPCS: 36415; 36600; 70551; 71045; 72141; 72146; 72148; 80048; 80061; 80305; 82375; 82550; 82607; 82746; 82805; 82962; 83036; 83605; 83735; 83880; 84439; 84443; 84481; 84484; 93005; 93306; 93970; 94640; 96365; 96375; 96376; 97116; 97162; 97166; 97530; 99285; J1650; J1956; J2270; J2405; J2930; J7620; J7626

== ENCOUNTER 2019-04-30 17:38 | Inpatient (IN) | payer MEDICARE, MEDICAID ==
[~2019-04-30] VITALS: Ht 162.6 cm; Wt 105.7 kg
[~2019-04-30 17:38] MED LIST changes: +LIDOCAINE HCL/PF 1% 2ML VIAL ONE
[2019-04-30] MEDS ORDERED: ALBUTEROL (0.083%) 2.5MG/3ML NEB HHN STA (18:31)
[2019-04-30] MEDS ORDERED: PREDNISONE 20MG TABLET PO STA (18:31)
[2019-04-30] MEDS ORDERED: IPRATROPIUM BROMIDE (0.02%) 0.5MG/2.5ML NEB HHN STA (18:31)
[2019-04-30 18:45] LABS: EOSINOPHILS % 2.7 % (0.0-5.0); HEMATOCRIT. 35.4 % (36.0-48.0); HEMOGLOBIN. 11.1 g/dL (12.0-16.0); LYMPHOCYTES % 22.6 % (20.0-50.0); MEAN CORPUSCULAR HEMOGLOBIN 25.7 pg (28.0-32.0); MEAN PLATELET VOLUME 8.2 fl (7.4-10.4); MONOCYTES % 5.9 % (2.0-8.0); NEUTROPHILS % 67.8 % (40.0-76.0); PLATELET 344 x1000/uL (130-400); RED BLOOD CELL COUNT 4.31 mill/uL (4.2-5.4); RED CELL DISTRIBUTION WIDTH 14.2 % (11.6-14.6)
[2019-04-30] MEDS ORDERED: MAGNESIUM 2 G PREMIX 50 ML IV ONE (18:45)
[2019-04-30 18:52] LABS: CHLORIDE 97 mEq/L (98-107); PROTHROMBIN TIME 10.6 sec (9.6-11.0)
[2019-04-30] MEDS ORDERED: FUROSEMIDE 40MG/4ML VIAL IVP ONE (19:00)
[2019-04-30 19:06] LABS: BG BASE EXCESS 7.8 mmol/L (-2.0-2.0); BG CARBOXYHEMOGLOBIN 0.4 % (0.5-1.5); BG DEOXYHEMOGLOBIN 3.5 % (0.0-5.0); BG FRACTION INSPIRED OXYGEN 28; BG HCO3 ACT 35.4 mmol/L (22.0-26.0); BG METHEMOGLOBIN 0.3 % (0.0-1.5); BG OXYGEN SATURATION 96.5 % (92.0-98.5); BG OXYHEMOGLOBIN 95.8 % (94.0-97.0); BG PCO2 66.3 mmHg (35.0-45.0); BG PH 7.345 (7.350-7.450); BG PO2 85.7 mmHg (75.0-100.0); BG SAMPLE SITE RIGHT RADIAL; BG TOTAL HEMOGLOBIN 11.4 g/dL (12.0-18.0); BG VENT MODE NASAL CANNULA
[2019-04-30] MEDS ORDERED: DOCUSATE SODIUM 100MG CAPSULE PO PRN (20:30)
[2019-04-30] MEDS ORDERED: HYDRALAZINE 20MG/ML VIAL IV PRN (20:30)
[2019-04-30] MEDS ORDERED: DEXTROSE 50% WATER 50ML SYRINGE IV PRN (20:30)
[2019-04-30] MEDS ORDERED: CLONIDINE 0.1MG TABLET PO PRN (20:30)
[2019-04-30] MEDS ORDERED: LORAZEPAM 2MG/ML CPJ IV PRN (20:30)
[2019-04-30] MEDS ORDERED: ONDANSETRON HCL 4MG/2ML INJ IV PRN (20:30)
[2019-04-30] MEDS ORDERED: MAGNESIUM/ALUMINUM HYDROXIDE/SIMETHICONE 30ML UDC PO PRN (20:30)
[2019-04-30] MEDS ORDERED: NA PHOS,M-B/NA PHOS,DI-BA ENEMA 118ML PR PRN (20:30)
[2019-04-30] MEDS ORDERED: GUAIFENESIN 200MG/10ML SUGAR FREE UDC PO PRN (20:30)
[2019-04-30] MEDS ORDERED: DIPHENHYDRAMINE 50MG/ML VIAL IV PRN (20:30)
[2019-04-30] MEDS ORDERED: ACETAMINOPHEN 325MG TABLET PO PRN (20:30)
[2019-04-30] MEDS ORDERED: IPRATROPIUM/ALBUTEROL 0.5-3(2.5)MG/3ML NEB NEB PRN (20:30)
[2019-04-30] MEDS: BLOOD SUGAR DIAGNOSTIC STRIP TEST SCH (21:00)
[2019-04-30] MEDS: INSULIN LISPRO 100 UNITS/ML SUBCUT SCH (21:00)
[2019-05-01] MEDS: HYDROCODONE/ACETAMINOPHEN 10/325MG TABLET PO PRN (00:21)
[2019-05-01] MEDS ORDERED: ENOXAPARIN 40MG/0.4ML SYR SUBCUT SCH ×2 (00:30→06:00)
[2019-05-01 05:13] LABS: HEMATOCRIT. 36.6 % (36.0-48.0); HEMOGLOBIN. 11.5 g/dL (12.0-16.0); MEAN CORPUSCULAR HEMOGLOBIN 25.8 pg (28.0-32.0); MEAN CORPUSCULAR VOLUME 81.7 fL (81.0-99.0); MEAN PLATELET VOLUME 8.2 fl (7.4-10.4); PLATELET 348 x1000/uL (130-400); RED BLOOD CELL COUNT 4.48 mill/uL (4.2-5.4); RED CELL DISTRIBUTION WIDTH 13.7 % (11.6-14.6)
[2019-05-01 05:23] LABS: CHLORIDE 95 mEq/L (98-107)
[2019-05-01 05:31] LABS: HDL CHOLESTEROL 63 mg/dL (40-59)
[2019-05-01 05:32] LABS: LDL CHOLESTEROL 116 mg/dL (5-100)
[2019-05-01 05:33] LABS: CREATINE KINASE 180 IU/L (26-192)
[2019-05-01 05:36] LABS: CREATINE KINASE MB FRACTION 3.5 ng/mL (0.5-3.6)
[2019-05-01] MEDS: MORPHINE SULFATE 2 MG/ML CPJ (NOT FOR IM USE) IV PRN ×2 (07:19→21:12)
[2019-05-01] MEDS: IPRATROPIUM/ALBUTEROL 0.5-3(2.5)MG/3ML NEB NEB SCH ×4 (07:30→22:58)
[2019-05-01] MEDS: INSULIN LISPRO 100 UNITS/ML SUBCUT SCH ×4 (08:20→21:00)
[2019-05-01] MEDS: BLOOD SUGAR DIAGNOSTIC STRIP TEST SCH ×4 (08:47→20:29)
[2019-05-01 09:25] LABS: PLATELET ESTIMATE NORMAL
[2019-05-01 10:00] VITALS: BP_SYST 121; BP_SYST 123; BP_DIAS 81
[2019-05-01 12:00] VITALS: BP 127/59
[2019-05-01 16:00] VITALS: BP 147/55
[2019-05-01] MEDS ORDERED: METHADONE HCL 10MG TABLET PO NR (16:13)
[2019-05-01] MEDS ORDERED: GUAIFENESIN/DM 600MG/30MG ER TAB 12HR PO PRN (17:00)
[2019-05-01] MEDS ORDERED: MONTELUKAST SODIUM 10MG TABLET PO SCH (17:00)
[2019-05-01] MEDS ORDERED: LEVOFLOXACIN 500MG PREMIX 100 ML IV SCH (18:00)
[2019-05-01 18:47] LABS: T4 FREE 1.27 ng/dL (0.76-1.46)
[2019-05-01] MEDS: FLUTICASONE PROPIONATE 50MCG/SPRAY BOTTLE BOTHNSTRLS SCH (19:26)
[2019-05-01 20:00] VITALS: BP 151/72
[2019-05-01] MEDS: ENOXAPARIN 30MG/0.3ML SYR SUBCUT SCH (21:12)
[2019-05-01] MEDS: SODIUM CHLORIDE 0.9% INJ 3ML FLUSH IVF SCH (21:12)
[2019-05-01] MEDS: BUDESONIDE 0.5MG/2ML NEB HHN SCH (22:58)
[2019-05-01] MEDS ORDERED: IOHEXOL-350 100 ML BOTTLE ONE (22:59)
[2019-05-01] MEDS ORDERED: IOHEXOL-300 100 ML BOTTLE ONE (22:59)
[2019-05-02] VITALS: BP 129/79
[2019-05-02 00:24] LABS: CREATINE KINASE 250 IU/L (26-192)
[2019-05-02 00:25] LABS: CREATINE KINASE MB FRACTION 3.1 ng/mL (0.5-3.6)
[2019-05-02 04:00] VITALS: BP 106/73
[2019-05-02] MEDS: IPRATROPIUM/ALBUTEROL 0.5-3(2.5)MG/3ML NEB NEB SCH ×3 (04:30→12:40)
[2019-05-02] MEDS: BLOOD SUGAR DIAGNOSTIC STRIP TEST SCH (06:30)
[2019-05-02] MEDS: SODIUM CHLORIDE 0.9% INJ 3ML FLUSH IVF SCH (06:43)
[2019-05-02 08:00] VITALS: BP 165/76
[2019-05-02 08:49] VITALS: BP 165/76
[2019-05-02] MEDS: FLUTICASONE PROPIONATE 50MCG/SPRAY BOTTLE BOTHNSTRLS SCH (09:21)
[2019-05-02] MEDS: ENOXAPARIN 30MG/0.3ML SYR SUBCUT SCH (09:22)
[2019-05-02] MEDS: HYDROCODONE/ACETAMINOPHEN 10/325MG TABLET PO PRN (09:24)
[2019-05-02] MEDS: BUDESONIDE 0.5MG/2ML NEB HHN SCH (09:28)
[2019-05-02 10:33] VITALS: BP 165/76
[2019-05-02 10:49] LABS: CREATINE KINASE 222 IU/L (26-192)
[2019-05-02] MEDS ORDERED: METHADONE HCL 10MG TABLET PO SCH (11:00)
== END 2019-05-02 12:45 | disposition home or self-care (01) | DRG 291 ==
LOC: ER 17:38 → EDBEDREQ 18:40 → 6WST 19:31 → EDBEDREQTM 19:33 → EDBEDREQ 19:33 → ENRESERV 05-01 08:59
PROVIDERS: ADMIT Internal Medicine; ATTEND Internal Medicine
DX: I11.0 Hypertensive heart disease with heart failure (principal); J96.00 Acute respiratory failure, unspecified whether with hypoxia or hypercapnia; J44.1 Chronic obstructive pulmonary disease with (acute) exacerbation; I50.43 Acute on chronic combined systolic (congestive) and diastolic (congestive) heart failure; I42.0 Dilated cardiomyopathy; I71.9 Aortic aneurysm of unspecified site, without rupture; E66.01 Morbid (severe) obesity due to excess calories; E78.5 Hyperlipidemia, unspecified; J06.9 Acute upper respiratory infection, unspecified; E11.9 Type 2 diabetes mellitus without complications; F11.90 Opioid use, unspecified, uncomplicated; Z99.81 Dependence on supplemental oxygen; I25.2 Old myocardial infarction; Z79.899 Other long term (current) drug therapy
CPT/HCPCS: 36415; 36600; 71045; 71275; 80053; 80061; 82375; 82550; 82553; 82805; 82962; 83036; 83605; 83880; 84439; 84443; 84484; 85025; 85379; 86850; 86870; 86900; 87804; 93005; 93306; 93970; 94640; 96365; 96372; 96375; 99285; J1650; J1940; J1956; J2270; J3475; J3490; J7512; J7611; J7620; J7626; Q9967

== ENCOUNTER 2019-11-13 16:43 | Inpatient (IN) | payer MEDICARE, MEDICAID ==
[~2019-11-13] VITALS: Ht 162.6 cm; Wt 116.6 kg
[~2019-11-13 16:43] MED LIST changes: -LIDOCAINE HCL/PF 1% 2ML VIAL ONE
[2019-11-13] MEDS ORDERED: PREDNISONE 20MG TABLET PO STA (18:16)
[2019-11-13] MEDS ORDERED: ALBUTEROL 6.7GM HFA INHALER ORI ONE (18:30)
[2019-11-13] MEDS ORDERED: TERBUTALINE SULFATE 1MG/ML VIAL SUBCUT ONE (18:30)
[2019-11-13] MEDS ORDERED: AZITHROMYCIN 500 MG TABLET PO ONE (18:30)
[2019-11-13 19:07] LABS: BASOPHILS % 0.7 % (0.0-2.0); EOSINOPHILS % 4.5 % (0.0-5.0); HEMATOCRIT. 35.1 % (36.0-48.0); LYMPHOCYTES % 24.6 % (20.0-50.0); MEAN PLATELET VOLUME 8.2 fl (7.4-10.4); MONOCYTES % 7.8 % (2.0-8.0); NEUTROPHILS % 62.4 % (40.0-76.0); PLATELET 354 x1000/uL (130-400); RED BLOOD CELL COUNT 4.23 mill/uL (4.2-5.4)
[2019-11-13 19:11] LABS: CHLORIDE 100 mEq/L (98-107)
[2019-11-13] MEDS ORDERED: FUROSEMIDE 20MG/2ML VIAL IVP ONE (20:00)
[2019-11-13] MEDS ORDERED: MAGNESIUM/ALUMINUM HYDROXIDE/SIMETHICONE 30ML UDC PO PRN (21:45)
[2019-11-13] MEDS ORDERED: ALBUTEROL 6.7GM HFA INHALER ORI PRN (21:45)
[2019-11-13] MEDS ORDERED: ONDANSETRON HCL 4MG/2ML INJ IV PRN (21:45)
[2019-11-13] MEDS: GUAIFENESIN/DM 600MG/30MG ER TAB 12HR PO SCH (21:45)
[2019-11-13] MEDS ORDERED: ACETAMINOPHEN 325MG TABLET PO PRN ×2 (21:45)
[2019-11-13] MEDS ORDERED: DOCUSATE SODIUM 100MG CAPSULE PO PRN (21:45)
[2019-11-13] MEDS ORDERED: CLONIDINE 0.1MG TABLET PO PRN (21:45)
[2019-11-13] MEDS ORDERED: NITROGLYCERIN 0.4MG TABLET SL SL PRN (21:45)
[2019-11-13] MEDS ORDERED: GUAIFENESIN 200MG/10ML SUGAR FREE UDC PO PRN (21:45)
[2019-11-13] MEDS ORDERED: METHYLPREDNISOLONE SOD SUCC 125 MG/2 ML VIAL IV SCH (22:00)
[2019-11-13] MEDS ORDERED: CEFTRIAXONE 1 G PREMIX 50 ML IV SCH (22:00)
[2019-11-13] MEDS ORDERED: DEXTROSE 50% WATER 50ML SYRINGE IV PRN (22:45)
[2019-11-13] MEDS: METHYLPREDNISOLONE SOD SUCC 125 MG/2 ML VIAL IV SCH (22:58)
[2019-11-13 23:30] LABS: CREATINE KINASE 79 IU/L (26-192)
[2019-11-13 23:31] LABS: CREATINE KINASE MB FRACTION < 1.0 ng/mL (0.5-3.6)
[2019-11-14] VITALS (7 sets, daily range): BP systolic 105–161; BP diastolic 66–87
[2019-11-14] MEDS: METHYLPREDNISOLONE SOD SUCC 125 MG/2 ML VIAL IV SCH ×3 (04:52→21:02)
[2019-11-14] MEDS: BLOOD SUGAR DIAGNOSTIC STRIP TEST SCH ×4 (04:52→20:28)
[2019-11-14 07:14] LABS: CREATINE KINASE 67 IU/L (26-192)
[2019-11-14 07:16] LABS: CREATINE KINASE MB FRACTION 1.1 ng/mL (0.5-3.6)
[2019-11-14] MEDS: GUAIFENESIN/DM 600MG/30MG ER TAB 12HR PO SCH ×2 (09:11→20:27)
[2019-11-14] MEDS: INSULIN LISPRO 100 UNITS/ML SUBCUT SCH ×4 (09:11→21:01)
[2019-11-14] MEDS: AMLODIPINE 10MG TABLET PO SCH (09:12)
[2019-11-14] MEDS: ASPIRIN 325MG EC TABLET PO SCH (09:13)
[2019-11-14] MEDS: ASCORBIC ACID 500 MG TABLET PO SCH ×2 (09:13→20:27)
[2019-11-14] MEDS: FAMOTIDINE 20MG TABLET PO SCH ×2 (09:13→20:27)
[2019-11-14] MEDS: ZINC SULFATE 220 MG ( 50 ) CAPSULE PO SCH (09:13)
[2019-11-14] MEDS: ENOXAPARIN 30MG/0.3ML SYR SUBCUT SCH ×2 (09:13→20:28)
[2019-11-14] MEDS: METHADONE HCL 10MG TABLET PO SCH (13:18)
[2019-11-14] MEDS ORDERED: AZITHROMYCIN 500 MG in DEXT 5% WATER 250 ML IV SCH (20:00)
[2019-11-14] MEDS: CEFTRIAXONE 1,000 MG in DEXTROSE 5% WATER 50 ML IV SCH (20:27)
[2019-11-14] MEDS: AZITHROMYCIN 500 MG in DEXT 5% WATER 250 ML IV SCH (22:03)
[2019-11-14] MEDS: TRAMADOL 50MG TABLET PO PRN (22:34)
[2019-11-14] MEDS: ALBUTEROL (0.083%) 2.5MG/3ML NEB HHN PRN (23:17)
[2019-11-15] VITALS: BP 110/71
[2019-11-15 04:00] VITALS: BP 153/77
[2019-11-15] MEDS: BLOOD SUGAR DIAGNOSTIC STRIP TEST SCH ×4 (05:40→21:23)
[2019-11-15] MEDS: METHYLPREDNISOLONE SOD SUCC 125 MG/2 ML VIAL IV SCH ×2 (05:43→13:03)
[2019-11-15] MEDS: METHADONE HCL 10MG TABLET PO SCH (08:25)
[2019-11-15] MEDS: ASCORBIC ACID 500 MG TABLET PO SCH ×2 (08:26→21:23)
[2019-11-15] MEDS: TRAMADOL 50MG TABLET PO PRN ×2 (08:26→16:33)
[2019-11-15] MEDS: AMLODIPINE 10MG TABLET PO SCH (08:26)
[2019-11-15] MEDS: ASPIRIN 325MG EC TABLET PO SCH (08:26)
[2019-11-15] MEDS: ZINC SULFATE 220 MG ( 50 ) CAPSULE PO SCH (08:26)
[2019-11-15] MEDS: ENOXAPARIN 30MG/0.3ML SYR SUBCUT SCH ×2 (08:27→21:24)
[2019-11-15] MEDS: FAMOTIDINE 20MG TABLET PO SCH ×2 (08:30→21:23)
[2019-11-15] MEDS: GUAIFENESIN/DM 600MG/30MG ER TAB 12HR PO SCH ×2 (08:30→21:23)
[2019-11-15] MEDS: INSULIN LISPRO 100 UNITS/ML SUBCUT SCH ×4 (08:35→21:24)
[2019-11-15 09:45] VITALS: BP 163/82
[2019-11-15] MEDS: ALBUTEROL (0.083%) 2.5MG/3ML NEB HHN PRN (10:08)
[2019-11-15 12:04] LABS: HEMATOCRIT. 33.6 % (36.0-48.0); HEMOGLOBIN. 10.6 g/dL (12.0-16.0); MEAN CORPUSCULAR VOLUME 82.5 fL (81.0-99.0); MEAN PLATELET VOLUME 8.6 fl (7.4-10.4); PLATELET 336 x1000/uL (130-400); RED BLOOD CELL COUNT 4.08 mill/uL (4.2-5.4); RED CELL DISTRIBUTION WIDTH 13.9 % (11.6-14.6)
[2019-11-15 12:08] VITALS: BP 109/45
[2019-11-15 12:13] LABS: CHLORIDE 98 mEq/L (98-107)
[2019-11-15 13:14] LABS: PLATELET ESTIMATE NORMAL
[2019-11-15] MEDS ORDERED: ALBUTEROL (0.083%) 2.5MG/3ML NEB HHN SCH (15:00)
[2019-11-15 16:06] VITALS: BP 121/64
[2019-11-15] MEDS ORDERED: IPRATROPIUM/ALBUTEROL 0.5-3(2.5)MG/3ML NEB HHN PRN (17:00)
[2019-11-15] MEDS ORDERED: TERBUTALINE SULFATE 1MG/ML VIAL SUBCUT NR (17:00)
[2019-11-15 17:11] LABS: *AMPHETAMINES SCREEN URINE NEGATIVE (NEGATIVE); *BARBITURATES SCREEN URINE NEGATIVE (NEGATIVE); *BENZODIAZEPINES SCREEN URINE PRESUMTIVE POSITIVE (NEGATIVE); *COCAINE SCREEN URINE NEGATIVE (NEGATIVE); OPIATES URINE SCREEN PRESUMTIVE POSITIVE (NEGATIVE)
[2019-11-15 17:12] LABS: CANNABINOID URINE SCREEN NEGATIVE (NEGATIVE); PHENCYCLIDINE URINE SCREEN NEGATIVE (NEGATIVE)
[2019-11-15 17:18] LABS: METHADONE URINE SCREEN PRESUMTIVE POSITIVE (NEGATIVE)
[2019-11-15 20:00] VITALS: BP 147/67
[2019-11-15] MEDS: IPRATROPIUM/ALBUTEROL 0.5-3(2.5)MG/3ML NEB HHN SCH (21:17)
[2019-11-15] MEDS: BUDESONIDE 0.5MG/2ML NEB HHN SCH (21:17)
[2019-11-15] MEDS: METHYLPREDNISOLONE SOD SUCC 40 MG/ML VIAL IV SCH (21:22)
[2019-11-15] MEDS: AZITHROMYCIN 500 MG in DEXT 5% WATER 250 ML IV SCH (21:23)
[2019-11-15] MEDS: ZOLPIDEM TARTRATE 5MG TABLET PO PRN (21:23)
[2019-11-15] MEDS: CEFTRIAXONE 1,000 MG in DEXTROSE 5% WATER 50 ML IV SCH (21:23)
[2019-11-16] VITALS: BP 145/61
[2019-11-16] MEDS: IPRATROPIUM/ALBUTEROL 0.5-3(2.5)MG/3ML NEB HHN SCH ×6 (01:07→21:47)
[2019-11-16 04:30] VITALS: BP 154/77
[2019-11-16] MEDS: METHYLPREDNISOLONE SOD SUCC 40 MG/ML VIAL IV SCH ×3 (06:19→21:04)
[2019-11-16] MEDS: TRAMADOL 50MG TABLET PO PRN ×3 (06:19→21:24)
[2019-11-16] MEDS: BLOOD SUGAR DIAGNOSTIC STRIP TEST SCH ×4 (06:19→21:15)
[2019-11-16 08:00] VITALS: BP 130/89
[2019-11-16] MEDS: AMLODIPINE 10MG TABLET PO SCH (08:31)
[2019-11-16] MEDS: ASPIRIN 325MG EC TABLET PO SCH (08:32)
[2019-11-16] MEDS: FAMOTIDINE 20MG TABLET PO SCH ×2 (08:32→21:05)
[2019-11-16] MEDS: ENOXAPARIN 30MG/0.3ML SYR SUBCUT SCH ×2 (08:32→21:04)
[2019-11-16] MEDS: ASCORBIC ACID 500 MG TABLET PO SCH ×2 (08:32→21:05)
[2019-11-16] MEDS: ZINC SULFATE 220 MG ( 50 ) CAPSULE PO SCH (08:32)
[2019-11-16] MEDS: METHADONE HCL 10MG TABLET PO SCH (08:34)
[2019-11-16] MEDS: INSULIN LISPRO 100 UNITS/ML SUBCUT SCH ×4 (08:40→21:18)
[2019-11-16] MEDS: BUDESONIDE 0.5MG/2ML NEB HHN SCH ×2 (09:55→21:48)
[2019-11-16 10:08] LABS: BG BASE EXCESS 7.2 mmol/L (-2.0-2.0); BG CARBOXYHEMOGLOBIN 0.3 % (0.5-1.5); BG DEOXYHEMOGLOBIN 2.8 % (0.0-5.0); BG FRACTION INSPIRED OXYGEN 28; BG HCO3 ACT 32.4 mmol/L (22.0-26.0); BG METHEMOGLOBIN 0.2 % (0.0-1.5); BG OXYGEN SATURATION 97.2 % (92.0-98.5); BG OXYHEMOGLOBIN 96.7 % (94.0-97.0); BG PCO2 48.8 mmHg (35.0-45.0); BG PO2 94.1 mmHg (75.0-100.0); BG SAMPLE SITE RIGHT RADIAL; BG TOTAL HEMOGLOBIN 11.6 g/dL (12.0-18.0); BG VENT MODE NASAL CANNULA
[2019-11-16] MEDS: GUAIFENESIN/DM 600MG/30MG ER TAB 12HR PO SCH ×2 (10:46→21:05)
[2019-11-16 12:00] VITALS: BP 142/71
[2019-11-16 16:00] VITALS: BP 148/65
[2019-11-16 20:00] VITALS: BP 157/74
[2019-11-16] MEDS: AZITHROMYCIN 500 MG in DEXT 5% WATER 250 ML IV SCH (20:35)
[2019-11-16] MEDS: ZOLPIDEM TARTRATE 5MG TABLET PO PRN (23:36)
[2019-11-16] MEDS: CEFTRIAXONE 1,000 MG in DEXTROSE 5% WATER 50 ML IV SCH (23:37)
[2019-11-17] VITALS: BP 144/71
[2019-11-17] MEDS: IPRATROPIUM/ALBUTEROL 0.5-3(2.5)MG/3ML NEB HHN SCH ×2 (01:28→09:28)
[2019-11-17 04:00] VITALS: BP 151/90
[2019-11-17] MEDS: METHYLPREDNISOLONE SOD SUCC 40 MG/ML VIAL IV SCH (06:00)
[2019-11-17] MEDS: INSULIN LISPRO 100 UNITS/ML SUBCUT SCH (06:34)
[2019-11-17] MEDS: BLOOD SUGAR DIAGNOSTIC STRIP TEST SCH (06:40)
[2019-11-17 08:00] VITALS: BP 166/89
[2019-11-17] MEDS: GUAIFENESIN/DM 600MG/30MG ER TAB 12HR PO SCH (09:00)
[2019-11-17] MEDS: FAMOTIDINE 20MG TABLET PO SCH (09:11)
[2019-11-17] MEDS: ASPIRIN 325MG EC TABLET PO SCH (09:11)
[2019-11-17] MEDS: ZINC SULFATE 220 MG ( 50 ) CAPSULE PO SCH (09:11)
[2019-11-17] MEDS: AMLODIPINE 10MG TABLET PO SCH (09:11)
[2019-11-17] MEDS: ENOXAPARIN 30MG/0.3ML SYR SUBCUT SCH (09:12)
[2019-11-17] MEDS: ASCORBIC ACID 500 MG TABLET PO SCH (09:12)
[2019-11-17] MEDS: METHADONE HCL 10MG TABLET PO SCH (09:13)
[2019-11-17] MEDS: BUDESONIDE 0.5MG/2ML NEB HHN SCH (09:28)
[2019-11-17 09:48] VITALS: BP 145/85
[2019-11-17] MEDS ORDERED: AZITHROMYCIN 500 MG TABLET PO SCH (20:00)
== END 2019-11-17 10:40 | disposition home health service (06) | DRG 189 ==
LOC: ER 16:43 → 7WST 20:03 → SUPCPDRO 21:31 → ENRESERV 22:58 → 6WST 11-14 21:37
PROVIDERS: ADMIT Internal Medicine; ATTEND Internal Medicine
DX: J96.01 Acute respiratory failure with hypoxia (principal); J44.1 Chronic obstructive pulmonary disease with (acute) exacerbation; E66.2 Morbid (severe) obesity with alveolar hypoventilation; Z68.41 Body mass index [BMI] 40.0-44.9, adult; E11.9 Type 2 diabetes mellitus without complications; D63.8 Anemia in other chronic diseases classified elsewhere; E78.00 Pure hypercholesterolemia, unspecified; I11.0 Hypertensive heart disease with heart failure; E78.5 Hyperlipidemia, unspecified; I50.9 Heart failure, unspecified; M19.90 Unspecified osteoarthritis, unspecified site; J45.909 Unspecified asthma, uncomplicated; Z79.4 Long term (current) use of insulin; Z80.1 Family history of malignant neoplasm of trachea, bronchus and lung; Z99.81 Dependence on supplemental oxygen; Z79.899 Other long term (current) drug therapy; Z20.828 Contact with and (suspected) exposure to other viral communicable diseases
CPT/HCPCS: 36415; 36600; 71045; 80048; 80053; 80061; 80305; 82375; 82550; 82553; 82607; 82746; 82805; 82962; 83036; 83540; 83550; 83605; 83735; 83880; 84484; 85025; 87635; 93005; 93970; 94640; 97110; 97162; 97166; 97535; 99285; J0456; J0696; J1650; J1815; J1940; J2920; J2930; J3105; J7060; J7512; J7626

== ENCOUNTER 2020-06-14 17:24 | Emergency (ER) | payer BC, MEDICAID ==
[~2020-06-14] VITALS: Ht 162.6 cm; Wt 91.0 kg
[2020-06-14] MEDS ORDERED: IPRATROPIUM BROMIDE (0.02%) 0.5MG/2.5ML NEB HHN ONE ×2 (18:15→22:45)
[2020-06-14] MEDS ORDERED: PREDNISONE 20MG TABLET PO ONE (18:15)
[2020-06-14] MEDS ORDERED: ALBUTEROL (0.083%) 2.5MG/3ML NEB HHN ONE ×2 (18:15→22:45)
[2020-06-14 19:09] LABS: BASOPHILS % 0.5 % (0.0-2.0); EOSINOPHILS % 3.7 % (0.0-5.0); HEMATOCRIT. 30.1 % (36.0-48.0); HEMOGLOBIN. 9.6 g/dL (12.0-16.0); LYMPHOCYTES % 16.2 % (20.0-50.0); MEAN CORPUSCULAR HEMOGLOBIN 25.9 pg (28.0-32.0); MEAN CORPUSCULAR VOLUME 81.3 fL (81.0-99.0); MEAN PLATELET VOLUME 7.9 fl (7.4-10.4); MONOCYTES % 6.5 % (2.0-8.0); NEUTROPHILS % 73.1 % (40.0-76.0); PLATELET 341 x1000/uL (130-400); RED CELL DISTRIBUTION WIDTH 13.7 % (11.6-14.6)
[2020-06-14 19:13] LABS: CHLORIDE 103 mEq/L (98-107)
[2020-06-14] MEDS ORDERED: LEVOFLOXACIN 750MG PREMIX 150 ML IV ONE (22:00)
[2020-06-14] MEDS ORDERED: ASPIRIN 325MG EC TABLET PO ONE (22:30)
[2020-06-15 04:25] VITALS: BP 167/86
== END 2020-06-15 04:25 | disposition short-term general hospital (02) ==
LOC: ER 17:24
DX: J44.1 Chronic obstructive pulmonary disease with (acute) exacerbation (principal); E11.9 Type 2 diabetes mellitus without complications; I10 Essential (primary) hypertension; Z03.818 Encounter for observation for suspected exposure to other biological agents ruled out; Z98.890 Other specified postprocedural states; Z87.891 Personal history of nicotine dependence
CPT/HCPCS: 36415; 71045; 80048; 83880; 84484; 85025; 93005; 94640; 96365; 99285; J1956; J7512

== ENCOUNTER 2022-09-15 23:14 | Inpatient (IN) | payer OTHER, MEDICAID ==
[~2022-09-15] VITALS: Ht 162.6 cm; Wt 92.6 kg
[~2022-09-15 23:14] MED LIST changes: +METH-818 PO; -METH10TA2 PO; +MONT-46 PO; -MONT10TA21 PO
[2022-09-15 23:18] VITALS: RESP 23
[2022-09-15 23:56] LABS: HEMATOCRIT. 30.8 % (36.0-48.0); HEMOGLOBIN. 9.4 g/dL (12.0-16.0); LYMPHOCYTES % 7.7 % (20.0-50.0); MEAN CORPUSCULAR HEMOGLOBIN 25.5 pg (28.0-32.0); MEAN CORPUSCULAR VOLUME 83.4 fL (81.0-99.0); MEAN PLATELET VOLUME 9.3 fl (7.4-10.4); MONOCYTES % 2.9 % (2.0-8.0); NEUTROPHILS % 89.4 % (40.0-76.0); PLATELET 407 x1000/uL (130-400); RED CELL DISTRIBUTION WIDTH 15.2 % (11.6-14.6)
[2022-09-15 23:58] LABS: CHLORIDE 107 mEq/L (98-107)
[2022-09-16] VITALS (14 sets, daily range): BP systolic 111–160; BP diastolic 31–115; PULSE 79–100; RESP 14–27; TEMP 97.5–98.1; O2SAT 98–99
[2022-09-16] MEDS ORDERED: IPRATROPIUM/ALBUTEROL 0.5-3(2.5)MG/3ML NEB HHN ONE
[2022-09-16] MEDS ORDERED: METHYLPREDNISOLONE SOD SUCC 125MG/2ML (ACT-O-VIAL) IV ONE
[2022-09-16 00:51] LABS: BG BASE EXCESS -5.3 mmol/L (-2.0-2.0); BG CARBOXYHEMOGLOBIN 0.3 % (0.5-1.5); BG DEOXYHEMOGLOBIN 1.5 % (0.0-5.0); BG FRACTION INSPIRED OXYGEN 28; BG HCO3 ACT 19.8 mmol/L (22.0-26.0); BG METHEMOGLOBIN 0.3 % (0.0-1.5); BG OXYGEN SATURATION 98.5 % (92.0-98.5); BG OXYHEMOGLOBIN 97.9 % (94.0-97.0); BG PCO2 36.7 mmHg (35.0-45.0); BG PH 7.349 (7.350-7.450); BG PO2 122.1 mmHg (75.0-100.0); BG SAMPLE SITE RIGHT RADIAL; BG TOTAL HEMOGLOBIN 9.5 g/dL (12.0-18.0); BG VENT MODE MASK - BIPAP
[2022-09-16] MEDS ORDERED: FUROSEMIDE 40MG/4ML VIAL IVP NR (01:15)
[2022-09-16] MEDS ORDERED: IPRATROPIUM/ALBUTEROL 0.5-3(2.5)MG/3ML NEB ONE (02:17)
[2022-09-16] MEDS ORDERED: DEXTROSE 50% WATER 50ML SYRINGE IV PRN (02:45)
[2022-09-16] MEDS ORDERED: CLONIDINE 0.1MG TABLET PO PRN (02:45)
[2022-09-16] MEDS ORDERED: METHYLPREDNISOLONE SOD SUCC 40MG/ML (ACT-O-VIAL) IV SCH (02:45)
[2022-09-16] MEDS ORDERED: IPRATROPIUM/ALBUTEROL 0.5-3(2.5)MG/3ML NEB HHN PRN (02:45)
[2022-09-16] MEDS ORDERED: MAGNESIUM/ALUMINUM HYDROXIDE/SIMETHICONE 30ML UDC PO PRN (02:45)
[2022-09-16] MEDS ORDERED: ACETAMINOPHEN 325MG TABLET PO PRN ×2 (02:45)
[2022-09-16] MEDS ORDERED: ONDANSETRON HCL 4MG/2ML INJ IV PRN (02:45)
[2022-09-16] MEDS ORDERED: HYDROCODONE/ACETAMINOPHEN 5/325MG TABLET PO PRN (02:45)
[2022-09-16] MEDS ORDERED: IPRATROPIUM/ALBUTEROL 0.5-3(2.5)MG/3ML NEB HHN NR (03:00)
[2022-09-16 03:30] LABS: TOTAL IRON BINDING CAPACITY 428 ug/dL (250-450)
[2022-09-16 03:56] LABS: FOLIC ACID (FOLATE) SERUM 12.7 ng/mL (>5.38)
[2022-09-16] MEDS: LORAZEPAM 2MG/ML CPJ IV PRN ×2 (05:07→22:41)
[2022-09-16 07:24] LABS: CLARITY URINE CLEAR (CLEAR); COLOR URINE YELLOW (YELLOW); KETONES URINE NEGATIVE (NEGATIVE); LEUKOCYTE ESTERASE URINE NEGATIVE (NEGATIVE); NITRITE URINE NEGATIVE (NEGATIVE); OCCULT BLOOD URINE NEGATIVE (NEGATIVE); PROTEIN URINE NEGATIVE (NEGATIVE); SPECIFIC GRAVITY URINE 1.008 (1.005-1.030); UROBILINOGEN URINE 0.2 E.U./dL (0.2-1.0)
[2022-09-16] MEDS: BLOOD SUGAR DIAGNOSTIC STRIP TEST SCH ×4 (07:30→21:20)
[2022-09-16 08:07] LABS: SODIUM URINE RANDOM 121 mEq/L
[2022-09-16] MEDS: ENOXAPARIN 30MG/0.3ML SYR SUBCUT SCH ×2 (09:25→21:59)
[2022-09-16] MEDS: AZITHROMYCIN 500 MG TABLET PO SCH (09:26)
[2022-09-16] MEDS: AMLODIPINE 5MG TABLET PO SCH (09:26)
[2022-09-16] MEDS: PANTOPRAZOLE SODIUM 40 MG/VIAL IV SCH (09:26)
[2022-09-16] MEDS: FUROSEMIDE 40MG/4ML VIAL IV SCH ×2 (09:27→17:09)
[2022-09-16] MEDS: METHYLPREDNISOLONE SOD SUCC 40MG VIAL IV SCH ×2 (09:28→17:10)
[2022-09-16] MEDS: INSULIN LISPRO 100 UNITS/ML SUBCUT SCH ×4 (09:30→22:00)
[2022-09-16] MEDS: BUDESONIDE 0.5MG/2ML NEB HHN SCH ×2 (10:09→19:54)
[2022-09-16] MEDS ORDERED: CEFTRIAXONE 1GM PREMIX 50 ML IV SCH (11:45)
[2022-09-16] MEDS ORDERED: METHYLPREDNISOLONE SOD SUCC 40MG VIAL IV SCH (12:00)
[2022-09-16] MEDS: CEFTRIAXONE 1,000 MG in DEXTROSE 5% WATER 50 ML IV SCH (13:45)
[2022-09-16 14:58] LABS: *AMPHETAMINES SCREEN URINE NEGATIVE (NEGATIVE); *BARBITURATES SCREEN URINE NEGATIVE (NEGATIVE); *BENZODIAZEPINES SCREEN URINE NEGATIVE (NEGATIVE); *COCAINE SCREEN URINE NEGATIVE (NEGATIVE); CANNABINOID URINE SCREEN NEGATIVE (NEGATIVE); OPIATES URINE SCREEN NEGATIVE (NEGATIVE); PHENCYCLIDINE URINE SCREEN NEGATIVE (NEGATIVE)
[2022-09-16 15:01] LABS: METHADONE URINE SCREEN PRESUMTIVE POSITIVE (NEGATIVE)
[2022-09-16] MEDS: IPRATROPIUM/ALBUTEROL 0.5-3(2.5)MG/3ML NEB HHN SCH ×2 (15:22→20:55)
[2022-09-17] VITALS (13 sets, daily range): BP systolic 127–162; BP diastolic 74–91; PULSE 76–104; RESP 14–23; TEMP 97.7–98.4; O2SAT 99–100
[2022-09-17] MEDS: METHYLPREDNISOLONE SOD SUCC 40MG VIAL IV SCH ×2 (00:38→09:19)
[2022-09-17] MEDS: IPRATROPIUM/ALBUTEROL 0.5-3(2.5)MG/3ML NEB HHN SCH ×3 (01:25→14:08)
[2022-09-17 06:32] LABS: HEMATOCRIT. 27.6 % (36.0-48.0); MEAN CORPUSCULAR HEMOGLOBIN 26.2 pg (28.0-32.0); MEAN PLATELET VOLUME 9.4 fl (7.4-10.4); PLATELET 310 x1000/uL (130-400); RED BLOOD CELL COUNT 3.45 mill/uL (4.2-5.4); RED CELL DISTRIBUTION WIDTH 14.6 % (11.6-14.6)
[2022-09-17 06:36] LABS: CHLORIDE 107 mEq/L (98-107)
[2022-09-17 06:52] LABS: HDL CHOLESTEROL 82 mg/dL (40-59); LDL CHOLESTEROL 49 mg/dL (5-100); T4 FREE 1.06 ng/dL (0.76-1.46)
[2022-09-17] MEDS: BLOOD SUGAR DIAGNOSTIC STRIP TEST SCH ×2 (07:30→12:30)
[2022-09-17] MEDS: BUDESONIDE 0.5MG/2ML NEB HHN SCH (08:18)
[2022-09-17 08:25] LABS: PLATELET ESTIMATE NORMAL
[2022-09-17 09:15] LABS: BG BASE EXCESS 0.9 mmol/L (-2.0-2.0); BG CARBOXYHEMOGLOBIN 0.3 % (0.5-1.5); BG DEOXYHEMOGLOBIN 1.7 % (0.0-5.0); BG FRACTION INSPIRED OXYGEN 32; BG HCO3 ACT 25.4 mmol/L (22.0-26.0); BG METHEMOGLOBIN 0.2 % (0.0-1.5); BG OXYGEN SATURATION 98.3 % (92.0-98.5); BG OXYHEMOGLOBIN 97.8 % (94.0-97.0); BG PCO2 39.9 mmHg (35.0-45.0); BG PH 7.422 (7.350-7.450); BG PO2 125.6 mmHg (75.0-100.0); BG SAMPLE SITE RIGHT RADIAL; BG TOTAL HEMOGLOBIN 9.6 g/dL (12.0-18.0); BG VENT MODE NASAL CANNULA
[2022-09-17] MEDS: ENOXAPARIN 30MG/0.3ML SYR SUBCUT SCH (09:18)
[2022-09-17] MEDS: FUROSEMIDE 40MG/4ML VIAL IV SCH (09:18)
[2022-09-17] MEDS: AZITHROMYCIN 500 MG TABLET PO SCH (09:18)
[2022-09-17] MEDS: PANTOPRAZOLE SODIUM 40 MG/VIAL IV SCH (09:18)
[2022-09-17] MEDS: AMLODIPINE 5MG TABLET PO SCH (09:18)
[2022-09-17] MEDS: INSULIN LISPRO 100 UNITS/ML SUBCUT SCH ×2 (09:20→13:31)
[2022-09-17] MEDS: CEFTRIAXONE 1,000 MG in DEXTROSE 5% WATER 50 ML IV SCH (13:26)
[2022-09-17] MEDS ORDERED: AMLODIPINE 5MG TABLET PO SCH (17:00)
== END 2022-09-17 17:30 | disposition short-term general hospital (02) | DRG 189 ==
LOC: ER 23:14 → 5EST 09-16 01:10 → EDBEDREQ 09-16 01:19 → EDBEDREQTM 09-16 01:19 → ENRESERV 09-16 01:38
PROVIDERS: ADMIT Hospitalist; ATTEND Hospitalist
PROC: 5A09357 Assistance with Respiratory Ventilation, Less than 24 Consecutive Hours, Continuous Positive Airway Pressure (ICD-10-PCS; principal; 2022-09-15)
PROC: 5A09357 Assistance with Respiratory Ventilation, Less than 24 Consecutive Hours, Continuous Positive Airway Pressure (ICD-10-PCS; 2022-09-16)
DX: J96.01 Acute respiratory failure with hypoxia (principal); I50.41 Acute combined systolic (congestive) and diastolic (congestive) heart failure; J44.1 Chronic obstructive pulmonary disease with (acute) exacerbation; E87.29 Other acidosis; N17.9 Acute kidney failure, unspecified; I11.0 Hypertensive heart disease with heart failure; E11.65 Type 2 diabetes mellitus with hyperglycemia; E66.9 Obesity, unspecified; D64.9 Anemia, unspecified; D75.839 Thrombocytosis, unspecified; D72.829 Elevated white blood cell count, unspecified; Z68.34 Body mass index [BMI] 34.0-34.9, adult; Z96.659 Presence of unspecified artificial knee joint; Z79.899 Other long term (current) drug therapy; Z87.891 Personal history of nicotine dependence; Z79.4 Long term (current) use of insulin
CPT/HCPCS: 36415; 36600; 71045; 76770; 80053; 80061; 80305; 81003; 82375; 82607; 82728; 82746; 82805; 82962; 83036; 83540; 83550; 83880; 83935; 84300; 84439; 84443; 84484; 85025; 85379; 87426; 87804; 93005; 93306; 93970; 94640; 94660; 99291; A6261; C9113; J0696; J1650; J1815; J1940; J2060; J2920; J2930; J7060; J7626

== ENCOUNTER 2023-11-24 20:49 | Emergency (ER) | payer OTHER, MEDICAID ==
[~2023-11-24] VITALS: Ht 157.5 cm; Wt 100.0 kg
[2023-11-24 20:54] VITALS: O2SAT 96
[2023-11-24 23:27] LABS: BASOPHILS % 1.3 % (0.0-2.0); EOSINOPHILS % 6.2 % (0.0-5.0); HEMATOCRIT. 28.1 % (36.0-48.0); HEMOGLOBIN. 8.7 g/dL (12.0-16.0); LYMPHOCYTES % 20.2 % (20.0-50.0); MEAN CORPUSCULAR HGB CONC 30.8 g/dL (31.0-37.0); MEAN CORPUSCULAR VOLUME 80.9 fL (81.0-99.0); MEAN PLATELET VOLUME 8.3 fl (7.4-10.4); MONOCYTES % 9.5 % (2.0-8.0); NEUTROPHILS % 62.8 % (40.0-76.0); PLATELET 377 x1000/uL (130-400); RED BLOOD CELL COUNT 3.48 mill/uL (4.2-5.4); WHITE BLOOD COUNT 7.9 x1000/uL (4.5-11.0)
[2023-11-24 23:32] LABS: CARBON DIOXIDE 26 mEq/L (21-32); CHLORIDE 107 mEq/L (98-107); SODIUM 138 mEq/L (136-145)
[2023-11-24 23:33] LABS: CALCIUM 9.3 mg/dL (8.7-10.4)
[2023-11-24 23:37] LABS: CREATININE 1.7 mg/dL (0.6-1.0)
[2023-11-24 23:38] LABS: GLUCOSE 78 mg/dL (70-105); UREA NITROGEN BLOOD 28 mg/dL (9-23)
[2023-11-24 23:40] LABS: TROPONIN I HIGH SENSITIVITY 19 ng/L (3.0-34)
[2023-11-24 23:44] LABS: PARTIAL THROMBOPLASTIN TIME 28.1 sec (23.4-31.0); PROTHROMBIN TIME 10.7 sec (9.6-11.0)
[2023-11-25 01:10] LABS: ETHANOL BLOOD < 10 mg/dL (<10)
[2023-11-25 02:39] LABS: TROPONIN I HIGH SENSITIVITY 18 ng/L (3.0-34)
[2023-11-25] MEDS: SODIUM CHLORIDE 0.9% 250 ML IV ONE (07:29)
[2023-11-25 08:04] VITALS: BP 163/90; PULSE 87; RESP 16; TEMP 36.83628; O2SAT 95
== END 2023-11-25 08:15 | disposition short-term general hospital (02) ==
LOC: ER 20:49
DX: R55 Syncope and collapse (principal); J44.1 Chronic obstructive pulmonary disease with (acute) exacerbation; N28.9 Disorder of kidney and ureter, unspecified; D64.9 Anemia, unspecified; I11.0 Hypertensive heart disease with heart failure; I50.9 Heart failure, unspecified; J45.909 Unspecified asthma, uncomplicated; Z79.899 Other long term (current) drug therapy; Z98.890 Other specified postprocedural states; Z20.822 Contact with and (suspected) exposure to COVID-19
CPT/HCPCS: 36415; 71045; 80048; 80320; 83880; 84484; 85025; 87426; 93005; 96360; 99285; G0480

== ENCOUNTER 2024-07-15 18:13 | Emergency (ER) | payer OTHER, MEDICAID ==
[~2024-07-15] VITALS: Ht 160 cm; Wt 114.0 kg
[~2024-07-15 18:13] MED LIST changes: +AMLO-905 PO; -AMLO10TA4 PO
[2024-07-15 18:15] VITALS: O2SAT 100
[2024-07-15] MEDS: IPRATROPIUM BROMIDE (0.02%) 0.5MG/2.5ML NEB HHN STA (18:34)
[2024-07-15] MEDS: ALBUTEROL (0.083%) 2.5MG/3ML NEB HHN STA (18:35)
[2024-07-15 18:37] VITALS: PULSE 69; RESP 22
[2024-07-15 18:54] LABS: BASOPHILS % 0.8 % (0.0-2.0); EOSINOPHILS % 7.3 % (0.0-5.0); HEMATOCRIT. 34.7 % (36.0-48.0); HEMOGLOBIN. 10.8 g/dL (12.0-16.0); LYMPHOCYTES % 31.2 % (20.0-50.0); MEAN CORPUSCULAR HGB CONC 31.2 g/dL (31.0-37.0); MEAN CORPUSCULAR VOLUME 83.4 fL (81.0-99.0); MEAN PLATELET VOLUME 7.9 fl (7.4-10.4); MONOCYTES % 7.7 % (2.0-8.0); PLATELET 337 x1000/uL (130-400); RED BLOOD CELL COUNT 4.16 mill/uL (4.2-5.4); RED CELL DISTRIBUTION WIDTH 17.5 % (11.6-14.6); WHITE BLOOD COUNT 6.3 x1000/uL (4.5-11.0)
[2024-07-15 19:02] LABS: CHLORIDE 110 mEq/L (98-107); SODIUM 142 mEq/L (136-145)
[2024-07-15 19:03] LABS: CALCIUM 9.2 mg/dL (8.7-10.4); CARBON DIOXIDE 25 mEq/L (21-32)
[2024-07-15 19:06] LABS: PARTIAL THROMBOPLASTIN TIME 28.4 sec (23.4-31.0); PROTHROMBIN TIME 10.7 sec (9.6-11.0)
[2024-07-15 19:08] LABS: CREATININE 1.8 mg/dL (0.6-1.0); GLUCOSE 110 mg/dL (70-105); UREA NITROGEN BLOOD 30 mg/dL (9-23)
[2024-07-15 19:09] LABS: TROPONIN I HIGH SENSITIVITY 18 ng/L (3.0-34)
[2024-07-15] MEDS: METHYLPREDNISOLONE SOD SUCC 125MG/2ML (ACT-O-VIAL) IV STA (19:09)
[2024-07-15 19:10] VITALS: TEMP 36.9
[2024-07-15] MEDS: FUROSEMIDE 20MG/2ML VIAL IVP ONE (20:40)
[2024-07-15 21:27] LABS: INFLUENZA TYPE A Presumptive Negative (Pres. Neg.)
[2024-07-15 21:31] LABS: INFLUENZA TYPE B Presumptive Negative (Pres. Neg.)
[2024-07-15 21:32] LABS: RESPIRATORY SYNCYTIAL VIRUS Not Detected (Not Detectd)
[2024-07-15 22:38] VITALS: BP 125/68; PULSE 99; RESP 15; O2SAT 100
== END 2024-07-15 23:16 | disposition short-term general hospital (02) ==
LOC: ER 18:13 → EDBEDREQTM 18:32 → EDBEDREQ 19:54 → EDBEDREQTM 19:54 → ER 23:16
DX: J44.1 Chronic obstructive pulmonary disease with (acute) exacerbation (principal); N17.9 Acute kidney failure, unspecified; I11.0 Hypertensive heart disease with heart failure; E11.9 Type 2 diabetes mellitus without complications; I50.9 Heart failure, unspecified; J44.0 Chronic obstructive pulmonary disease with (acute) lower respiratory infection; Z79.899 Other long term (current) drug therapy; Z96.659 Presence of unspecified artificial knee joint; Z20.822 Contact with and (suspected) exposure to COVID-19
CPT/HCPCS: 99291; 96374; 71045; 96375; 87426; 80048; 83880; 85025; 85610; 85730; 87420; 84484; 87804 ×2; 36415; 94640; 93005; J2919; J1940

== ENCOUNTER 2024-09-05 17:45 | Inpatient (IN) | payer OTHER, MEDICAID, MEDICARE ==
[~2024-09-05] VITALS: Ht 162.6 cm; Wt 92.6 kg
[2024-09-05 01:00] VITALS: BP 125/75; PULSE 105; RESP 18; TEMP 36.4
[2024-09-05] MEDS ORDERED: ASPIRIN 325MG EC TABLET PO ONE (18:00)
[2024-09-05] MEDS ORDERED: NITROGLYCERIN 0.4MG TABLET SL SL ONE (18:00)
[2024-09-05] MEDS ORDERED: CALCIUM GLUCONATE 1GM PREMIX 50 ML IV ONE (18:15)
[2024-09-05 18:50] LABS: BASOPHILS % 1.2 % (0.0-2.0); EOSINOPHILS % 7.5 % (0.0-5.0); HEMATOCRIT. 36.1 % (36.0-48.0); HEMOGLOBIN. 11.3 g/dL (12.0-16.0); LYMPHOCYTES % 35.8 % (20.0-50.0); MEAN CORPUSCULAR HEMOGLOBIN 25.3 pg (28.0-32.0); MEAN CORPUSCULAR HGB CONC 31.4 g/dL (31.0-37.0); MEAN CORPUSCULAR VOLUME 80.7 fL (81.0-99.0); MEAN PLATELET VOLUME 8.5 fl (7.4-10.4); NEUTROPHILS % 49.5 % (40.0-76.0); PLATELET 329 x1000/uL (130-400); RED BLOOD CELL COUNT 4.47 mill/uL (4.2-5.4); RED CELL DISTRIBUTION WIDTH 14.5 % (11.6-14.6); WHITE BLOOD COUNT 7.3 x1000/uL (4.5-11.0)
[2024-09-05 19:00] LABS: PROTHROMBIN TIME 10.9 sec (9.6-11.0)
[2024-09-05 19:01] LABS: CHLORIDE 105 mEq/L (98-107); POTASSIUM 3.6 mEq/L (3.5-5.1); SODIUM 141 mEq/L (136-145)
[2024-09-05 19:02] LABS: CARBON DIOXIDE 24 mEq/L (21-32)
[2024-09-05 19:03] LABS: CALCIUM 9.7 mg/dL (8.7-10.4)
[2024-09-05 19:08] LABS: GLUCOSE 128 mg/dL (70-105); UREA NITROGEN BLOOD 59 mg/dL (9-23)
[2024-09-05 19:09] LABS: ALANINE AMINOTRANSFERASE 10 IU/L (10-49); ALBUMIN 4.1 g/dL (3.2-4.8); ASPARTATE AMINOTRANSFERASE 13 IU/L (<34); CREATININE 2.9 mg/dL (0.6-1.0); TROPONIN I HIGH SENSITIVITY 14 ng/L (3.0-34)
[2024-09-05 19:10] LABS: BILIRUBIN DIRECT < 0.1 mg/dL (<=3.0); BILIRUBIN TOTAL 0.2 mg/dL (0.1-1.0); PROTEIN TOTAL 6.7 g/dL (6.0-8.3)
[2024-09-05 21:52] LABS: TROPONIN I HIGH SENSITIVITY 15 ng/L (3.0-34)
[2024-09-05] MEDS ORDERED: ONDANSETRON HCL 4MG/2ML INJ IV PRN (23:15)
[2024-09-05] MEDS ORDERED: IPRATROPIUM/ALBUTEROL 0.5-3(2.5)MG/3ML NEB HHN PRN (23:15)
[2024-09-05] MEDS ORDERED: CLONIDINE 0.1MG TABLET PO PRN (23:15)
[2024-09-05] MEDS ORDERED: ACETAMINOPHEN 325MG TABLET PO PRN (23:15)
[2024-09-05] MEDS: SODIUM CHLORIDE 0.9% 500 ML IV ONE (23:30)
[2024-09-05] MEDS: ASPIRIN 325MG EC TABLET PO NR (23:56)
[2024-09-05] MEDS: POTASSIUM CHLORIDE 20MEQ TABLET SR PO SCH (23:57)
[2024-09-05] MEDS: NITROGLYCERIN 0.4MG TABLET SL SL NR (23:59)
[2024-09-06] VITALS (7 sets, daily range): BP systolic 105–125; BP diastolic 57–75; PULSE 74–105; RESP 16–20; TEMP 35.9–36.4; O2SAT 95–100
[2024-09-06] MEDS: CARVEDILOL 12.5MG TABLET PO SCH
[2024-09-06] MEDS: CALCIUM GLUCONATE 1GM PREMIX 50 ML IV NR (00:01)
[2024-09-06 00:18] LABS: PHOSPHORUS 4.5 mg/dL (2.5-4.9)
[2024-09-06 08:04] LABS: BASOPHILS % 0.8 % (0.0-2.0); EOSINOPHILS % 8.9 % (0.0-5.0); HEMATOCRIT. 32.6 % (36.0-48.0); HEMOGLOBIN. 10.4 g/dL (12.0-16.0); LYMPHOCYTES % 31.9 % (20.0-50.0); MEAN CORPUSCULAR HEMOGLOBIN 25.6 pg (28.0-32.0); MEAN CORPUSCULAR VOLUME 80.1 fL (81.0-99.0); MEAN PLATELET VOLUME 8.8 fl (7.4-10.4); NEUTROPHILS % 50.4 % (40.0-76.0); PLATELET 285 x1000/uL (130-400); RED BLOOD CELL COUNT 4.07 mill/uL (4.2-5.4); RED CELL DISTRIBUTION WIDTH 14.8 % (11.6-14.6); WHITE BLOOD COUNT 6.5 x1000/uL (4.5-11.0)
[2024-09-06] MEDS: ENOXAPARIN 40MG/0.4ML SYR SUBCUT SCH (08:37)
[2024-09-06] MEDS: PANTOPRAZOLE SODIUM 40 MG/VIAL IV SCH (08:52)
[2024-09-06 09:09] LABS: CREATINE KINASE MB FRACTION 1.6 ng/mL (0.5-3.6)
[2024-09-06 09:55] LABS: POTASSIUM 4.1 mEq/L (3.5-5.1)
[2024-09-06 09:56] LABS: CALCIUM 9.6 mg/dL (8.7-10.4)
[2024-09-06 10:01] LABS: CREATININE 2.8 mg/dL (0.6-1.0)
[2024-09-06 10:05] LABS: T4 FREE 1.08 ng/dL (0.89-1.76); THYROID STIMULATING HORMONE 1.12 uIU/mL (0.55-4.78)
[2024-09-06] MEDS: FUROSEMIDE 40MG/4ML VIAL IVP SCH (13:28)
[2024-09-06] MEDS: LORATADINE 10MG TABLET PO SCH (14:00)
[2024-09-06 16:35] LABS: CREATINE KINASE MB FRACTION 1.4 ng/mL (0.5-3.6)
[2024-09-06] MEDS: MONTELUKAST SODIUM 10MG TABLET PO SCH (17:28)
[2024-09-06] MEDS: FAMOTIDINE 20MG TABLET PO SCH (21:29)
[2024-09-06] MEDS: BUDESONIDE 0.5MG/2ML NEB HHN SCH (21:37)
[2024-09-06] MEDS: IPRATROPIUM/ALBUTEROL 0.5-3(2.5)MG/3ML NEB HHN SCH (21:38)
[2024-09-07] VITALS (8 sets, daily range): BP systolic 114–150; BP diastolic 53–80; PULSE 82–96; RESP 16–20; TEMP 36.4–36.7; O2SAT 96–100
[2024-09-07 06:21] LABS: HEMATOCRIT 33.7 % (36.0-48.0); HEMOGLOBIN 10.6 g/dL (12.0-16.0); MEAN CORPUSCULAR HEMOGLOBIN 25.2 pg (28.0-32.0); MEAN CORPUSCULAR HGB CONC 31.5 g/dL (31.0-37.0); MEAN CORPUSCULAR VOLUME 80.1 fL (81.0-99.0); PLATELET 290 x1000/uL (130-400); RED BLOOD CELL COUNT 4.21 mill/uL (4.2-5.4); RED CELL DISTRIBUTION WIDTH 14.7 % (11.6-14.6); WHITE BLOOD COUNT 6.3 x1000/uL (4.5-11.0)
[2024-09-07 06:39] LABS: POTASSIUM 4.3 mEq/L (3.5-5.1)
[2024-09-07 06:41] LABS: CALCIUM 9.2 mg/dL (8.7-10.4)
[2024-09-07 06:45] LABS: CREATININE 2.7 mg/dL (0.6-1.0)
[2024-09-07] MEDS: ACETAMINOPHEN 325MG TABLET PO PRN (18:56)
[2024-09-07] MEDS ORDERED: ATORVASTATIN CALCIUM 20MG TABLET PO SCH (21:00)
== END 2024-09-07 19:35 | disposition short-term general hospital (02) | DRG 308 ==
LOC: ER 17:45 → 7WST 21:49 → EDBEDREQ 21:59 → EDBEDREQTM 21:59 → ENRESERV 22:29
PROVIDERS: ADMIT Hospitalist; ATTEND Hospitalist
DX: I49.8 Other specified cardiac arrhythmias (principal); J96.21 Acute and chronic respiratory failure with hypoxia; J44.1 Chronic obstructive pulmonary disease with (acute) exacerbation; J45.901 Unspecified asthma with (acute) exacerbation; N17.9 Acute kidney failure, unspecified; I50.22 Chronic systolic (congestive) heart failure; I13.0 Hypertensive heart and chronic kidney disease with heart failure and stage 1 through stage 4 chronic kidney disease, or unspecified chronic kidney disease; E78.5 Hyperlipidemia, unspecified; D50.9 Iron deficiency anemia, unspecified; N18.9 Chronic kidney disease, unspecified; E11.22 Type 2 diabetes mellitus with diabetic chronic kidney disease; D72.10 Eosinophilia, unspecified; E11.9 Type 2 diabetes mellitus without complications; E66.9 Obesity, unspecified; K21.9 Gastro-esophageal reflux disease without esophagitis; M19.012 Primary osteoarthritis, left shoulder; Z87.891 Personal history of nicotine dependence; Z96.659 Presence of unspecified artificial knee joint; Z99.81 Dependence on supplemental oxygen
CPT/HCPCS: 36415; 71045; 73060; 80048; 80061; 80076; 82550; 82553; 82962; 83735; 83880; 84100; 84439; 84443; 84484; 85025; 85027; 85379; 93005; 93306; 93970; 94070; 94640; 94664; 97166; 98960; 99285; J0610; J1650; J1940; J2470; J7626

== ENCOUNTER 2024-10-04 14:23 | Inpatient (IN) | payer OTHER, MEDICAID, MEDICARE ==
[~2024-10-04] VITALS: Ht 162.6 cm; Wt 81.7 kg
[2024-10-04] MEDS: SODIUM CHLORIDE 0.9% (SEPSIS BOLUS) IV ONE (15:23)
[2024-10-04] MEDS: CEFTRIAXONE 2GM/50ML 50 ML IV ONE (15:28)
[2024-10-04 15:39] LABS: CREATININE 1.9 mg/dL (0.6-1.0)
[2024-10-04 15:40] LABS: TROPONIN I HIGH SENSITIVITY 18 ng/L (3.0-34); UREA NITROGEN BLOOD 38 mg/dL (9-23)
[2024-10-04 15:41] LABS: ASPARTATE AMINOTRANSFERASE 12 IU/L (<34); HEMATOCRIT. 33.5 % (36.0-48.0); HEMOGLOBIN. 10.6 g/dL (12.0-16.0); MEAN PLATELET VOLUME 8.0 fl (7.4-10.4); PLATELET 432 x1000/uL (130-400); RED BLOOD CELL COUNT 4.21 mill/uL (4.2-5.4); RED CELL DISTRIBUTION WIDTH 14.6 % (11.6-14.6)
[2024-10-04 15:42] LABS: BILIRUBIN DIRECT 0.4 mg/dL (<=3.0); BILIRUBIN TOTAL 0.7 mg/dL (0.1-1.0); PROTEIN TOTAL 5.5 g/dL (6.0-8.3)
[2024-10-04 15:59] LABS: INR 1.1
[2024-10-04 18:03] LABS: LYMPHOCYTES % MANUAL 3.0 % (20.0-60.0); MONOCYTES % MANUAL 2.0 % (2.0-8.0); NEUTROPHILS % MANUAL 95.0 % (45.0-75.0); PLATELET ESTIMATE INCREASED
[2024-10-04 21:00] VITALS: BP 134/65; PULSE 116; RESP 20; TEMP 36.3; O2SAT 94
[2024-10-04] MEDS: DILTIAZEM HCL 5MG/ML 5ML VIAL IV NR (23:10)
[2024-10-05] VITALS (7 sets, daily range): BP systolic 93–136; BP diastolic 49–92; PULSE 72–144; RESP 16–20; TEMP 35.6–36.4; O2SAT 95–100
[2024-10-05] MEDS ORDERED: CARV12.545 PO (01:08)
[2024-10-05] MEDS ORDERED: FURO40TA5 PO (01:08)
[2024-10-05] MEDS ORDERED: ATOR20TA65 PO (01:08)
[2024-10-05] MEDS ORDERED: AMLO5TAB88 PO (01:08)
[2024-10-05] MEDS ORDERED: IPRA3AMP9 (01:08)
[2024-10-05] MEDS ORDERED: SENN-297 PO (01:08)
[2024-10-05] MEDS ORDERED: ASPI-1160 PO (01:08)
[2024-10-05] MEDS ORDERED: TIOT4MIS2 IH (01:08)
[2024-10-05] MEDS ORDERED: ONDANSETRON HCL 4MG/2ML INJ IV PRN (04:00)
[2024-10-05] MEDS: DILTIAZEM HCL 60MG TABLET PO SCH (04:00)
[2024-10-05] MEDS ORDERED: CLONIDINE 0.1MG TABLET PO PRN (04:00)
[2024-10-05] MEDS ORDERED: MAGNESIUM/ALUMINUM HYDROXIDE/SIMETHICONE 30ML UDC PO PRN (04:00)
[2024-10-05] MEDS ORDERED: DIPHENHYDRAMINE 50MG/ML VIAL IV PRN (04:00)
[2024-10-05] MEDS ORDERED: ACETAMINOPHEN 325MG TABLET PO PRN (04:00)
[2024-10-05] MEDS: SODIUM CHLORIDE 0.9% 3ML FLUSH IVF SCH (05:46)
[2024-10-05 06:48] LABS: CLARITY URINE CLEAR (CLEAR); COLOR URINE DARK YELLOW (YELLOW); GLUCOSE URINE NEGATIVE (NEGATIVE); KETONES URINE TRACE (NEGATIVE); NITRITE URINE NEGATIVE (NEGATIVE); OCCULT BLOOD URINE NEGATIVE (NEGATIVE); PH URINE 5.5 (4.5-8.0); PROTEIN URINE 1+ (NEGATIVE); SPECIFIC GRAVITY URINE 1.016 (1.005-1.030); UROBILINOGEN URINE 0.2 E.U./dL (0.2-1.0)
[2024-10-05 06:49] LABS: LEUKOCYTE ESTERASE URINE NEGATIVE (NEGATIVE)
[2024-10-05 07:15] LABS: SQUAMOUS EPITHELIAL CELL URINE FEW /lpf (RARE/1+)
[2024-10-05 07:16] LABS: BACTERIA URINE NONE SEEN; RBC URINE 0-2 /hpf (0-2); WBC URINE NONE SEEN /hpf (0-2)
[2024-10-05] MEDS: ENOXAPARIN 30MG/0.3ML SYR SUBCUT SCH (09:51)
[2024-10-05] MEDS: CARVEDILOL 12.5MG TABLET PO SCH (09:51)
[2024-10-05] MEDS: FUROSEMIDE 40MG/4ML VIAL IVP SCH (09:51)
[2024-10-05] MEDS: ASPIRIN 81MG EC TABLET PO SCH (09:51)
[2024-10-05] MEDS: POTASSIUM CHLORIDE 20MEQ/PACKET PO NR (11:28)
[2024-10-05] MEDS: MIDODRINE HCL 5MG TABLET PO SCH (12:59)
[2024-10-05] MEDS: CEFTRIAXONE 1GM/50ML 50 ML IV SCH (15:31)
[2024-10-05 17:07] LABS: HEMATOCRIT. 30.3 % (36.0-48.0); HEMOGLOBIN. 9.3 g/dL (12.0-16.0); MEAN PLATELET VOLUME 8.1 fl (7.4-10.4); PLATELET 388 x1000/uL (130-400); RED BLOOD CELL COUNT 3.73 mill/uL (4.2-5.4); RED CELL DISTRIBUTION WIDTH 14.8 % (11.6-14.6)
[2024-10-05 17:25] LABS: CREATININE 2.4 mg/dL (0.6-1.0); UREA NITROGEN BLOOD 48.0 mg/dL (9-23)
[2024-10-05 17:30] LABS: EOSINOPHILS % MANUAL 2.0 % (0.0-5.0); LYMPHOCYTES % MANUAL 5.0 % (20.0-60.0); MONOCYTES % MANUAL 7.0 % (2.0-8.0); NEUTROPHILS % MANUAL 86.0 % (45.0-75.0); PLATELET ESTIMATE NORMAL
[2024-10-05] MEDS: DEXT 5%/0.45% NACL 1000ML 1,000 ML IV SCH (21:59)
[2024-10-05] MEDS: ATORVASTATIN CALCIUM 20MG TABLET PO SCH (22:00)
[2024-10-05] MEDS: METRONIDAZOLE 500MG TABLET PO SCH (22:00)
[2024-10-06] VITALS: BP 103/61; PULSE 79; RESP 16; TEMP 36.3; O2SAT 98
[2024-10-06 04:00] VITALS: BP 106/55; PULSE 72; RESP 16; TEMP 36.5; O2SAT 95
[2024-10-06 08:00] VITALS: BP 106/53; PULSE 68; RESP 17; TEMP 36.4; O2SAT 99
[2024-10-06 08:02] LABS: CREATININE 2.5 mg/dL (0.6-1.0)
[2024-10-06 08:03] LABS: UREA NITROGEN BLOOD 51 mg/dL (9-23)
[2024-10-06 08:04] LABS: HEMATOCRIT. 29.6 % (36.0-48.0); HEMOGLOBIN. 9.7 g/dL (12.0-16.0); MEAN PLATELET VOLUME 8.2 fl (7.4-10.4); PLATELET 385 x1000/uL (130-400); RED BLOOD CELL COUNT 3.67 mill/uL (4.2-5.4); RED CELL DISTRIBUTION WIDTH 14.7 % (11.6-14.6)
[2024-10-06 08:05] LABS: PHOSPHORUS 3.2 mg/dL (2.5-4.9)
[2024-10-06] MEDS: ACETAMINOPHEN 325MG TABLET PO PRN (08:49)
[2024-10-06 12:00] VITALS: BP 100/55; PULSE 70; RESP 16; TEMP 36.2; O2SAT 96
[2024-10-06] MEDS: POTASSIUM CHLORIDE 20MEQ TABLET SR PO SCH (13:20)
[2024-10-06 14:26] VITALS: BP 100/55; PULSE 70; TEMP 97.1; O2SAT 99
[2024-10-06 14:41] VITALS: PULSE 70
[2024-10-06 17:46] LABS: LYMPHOCYTES % MANUAL 5.0 % (20.0-60.0); MONOCYTES % MANUAL 7.0 % (2.0-8.0); NEUTROPHILS % MANUAL 88.0 % (45.0-75.0); PLATELET ESTIMATE NORMAL
== END 2024-10-06 15:30 | disposition short-term general hospital (02) | DRG 872 ==
LOC: ER 14:23 → EDBEDREQTM 18:01 → EDBEDREQ 18:01 → ENRESERV 18:11 → 6WST 20:30
PROVIDERS: ADMIT Internal Medicine; ATTEND Internal Medicine
DX: A41.9 Sepsis, unspecified organism (principal); I13.0 Hypertensive heart and chronic kidney disease with heart failure and stage 1 through stage 4 chronic kidney disease, or unspecified chronic kidney disease; I50.22 Chronic systolic (congestive) heart failure; J44.89 Other specified chronic obstructive pulmonary disease; K52.9 Noninfective gastroenteritis and colitis, unspecified; D50.9 Iron deficiency anemia, unspecified; N18.9 Chronic kidney disease, unspecified; E11.22 Type 2 diabetes mellitus with diabetic chronic kidney disease; Z96.659 Presence of unspecified artificial knee joint; Z79.899 Other long term (current) drug therapy
CPT/HCPCS: 36415; 71045; 74176; 80048; 80076; 81003; 83605; 83735; 83880; 84100; 84145; 84484; 85025; 87015; 87045; 87427; 87449; 87493; 93005; 99291; J0696; J1650; J1940; J3490; J7030

== ENCOUNTER 2025-02-12 23:59 | Emergency (ER) | payer OTHER, MEDICAID ==
[~2025-02-12] VITALS: Ht 162.6 cm; Wt 82.0 kg
[~2025-02-12 23:59] MED LIST changes: +AMLO5TAB88 PO; +ASPI-1160 PO; +ATOR20TA65 PO; +CARV12.545 PO; +FURO40TA5 PO; +IPRA3AMP9; +SENN-297 PO; +TIOT4MIS2 IH
[2025-02-13 00:05] VITALS: O2SAT 98
[2025-02-13] MEDS: ASPIRIN 81MG TABLET PO ONE (00:15)
[2025-02-13 01:51] LABS: BASOPHILS % 0.9 % (0.0-2.0); EOSINOPHILS % 2.0 % (0.0-5.0); HEMATOCRIT. 42.1 % (36.0-48.0); HEMOGLOBIN. 13.0 g/dL (12.0-16.0); LYMPHOCYTES % 30.7 % (20.0-50.0); MEAN PLATELET VOLUME 9.7 fl (7.4-10.4); MONOCYTES % 5.7 % (2.0-8.0); NEUTROPHILS % 60.7 % (40.0-76.0); PLATELET 494 x1000/uL (130-400); RED BLOOD CELL COUNT 5.21 mill/uL (4.2-5.4); RED CELL DISTRIBUTION WIDTH 16.8 % (11.6-14.6)
[2025-02-13 02:05] LABS: TROPONIN I HIGH SENSITIVITY 25 ng/L (3.0-34)
[2025-02-13 02:06] LABS: UREA NITROGEN BLOOD 18 mg/dL (9-23)
[2025-02-13 02:08] LABS: ASPARTATE AMINOTRANSFERASE 18 IU/L (<34); BILIRUBIN DIRECT < 0.1 mg/dL (<=3.0); BILIRUBIN TOTAL 0.2 mg/dL (0.1-1.0); PROTEIN TOTAL 7.1 g/dL (6.0-8.3)
[2025-02-13 02:10] LABS: CREATININE 1.6 mg/dL (0.6-1.0)
[2025-02-13 04:38] LABS: INR 1.0
[2025-02-13 04:43] LABS: TROPONIN I HIGH SENSITIVITY 23 ng/L (3.0-34)
[2025-02-13] MEDS: MORPHINE SULFATE 4 MG/ML INJ (FOR IV/IM USE) IV ONE (05:57)
[2025-02-13 08:08] VITALS: TEMP 36.8; O2SAT 98
[2025-02-13 08:31] LABS: INFLUENZA TYPE A Presumptive Negative (Pres. Neg.); INFLUENZA TYPE B Presumptive Negative (Pres. Neg.); RESPIRATORY SYNCYTIAL VIRUS Not Detected (Not Detectd)
[2025-02-13 08:32] VITALS: BP 130/58; PULSE 100; RESP 20; TEMP 98.24
== END 2025-02-13 08:41 | disposition short-term general hospital (02) ==
LOC: ER 23:59 → EDBEDREQTM 02-13 07:43 → EDBEDREQ 02-13 07:43 → ENRESERV 02-13 08:22 → CANRESERV 02-13 08:22 → CANBEDREQ 02-13 08:34 → ER 02-13 08:41
DX: R06.02 Shortness of breath (principal); R07.9 Chest pain, unspecified; E11.9 Type 2 diabetes mellitus without complications; I11.0 Hypertensive heart disease with heart failure; J44.89 Other specified chronic obstructive pulmonary disease; Z79.899 Other long term (current) drug therapy; Z88.6 Allergy status to analgesic agent; Z99.81 Dependence on supplemental oxygen; Z20.822 Contact with and (suspected) exposure to COVID-19
CPT/HCPCS: 99285; 80076; 80048; 80320; 83880; 85025; 85610; 85730; 87420; 84484; 87804 ×2; 36415; 71045; 93005; 96374; 87426; J2270; A4606; G0480